=== PATIENT | female | born 1935 | race Caucasian/White ===

== ENCOUNTER 2019-08-17 18:31 | Inpatient (IN) | payer MEDICARE, OTHER ==
[~2019-08-17] VITALS: Ht 152.4 cm; Wt 46.3 kg
[2019-08-17 18:58] LABS: BASOPHILS % (AUTO) 0.1 % (0.0-2.0); EOSINOPHILS % (AUTO) 0.1 % (0.0-6.0); HEMATOCRIT 53 % (33-45); HEMOGLOBIN 16.4 g/dL (11.5-14.8); LYMPHOCYTES # (AUTO) 1.3 /CMM (0.8-4.8); LYMPHOCYTES % (AUTO) 8.9 % (20.0-44.0); MEAN CORPUSCULAR HGB CONC 31 g/dl (31.0-36.0); MEAN CORPUSCULAR VOLUME 89 fL (82-100); MONOCYTES # (AUTO) 1.1 /CMM (0.1-1.30); MONOCYTES % (AUTO) 7.5 % (2.0-12.0); NEUTROPHILS # (AUTO) 12.4 /CMM (1.8-8.9); NEUTROPHILS % (AUTO) 83.4 % (43.0-81.0); PLATELET COUNT (AUTO) 243 /CMM (150-450); RED BLOOD CELL COUNT(AUTO) 5.94 MIL/uL (4.0-5.2); WHITE BLOOD COUNT (AUTO) 14.8 K/uL (4.3-11.0)
[2019-08-17] MEDS ORDERED: DEXAMETHASONE SOD PHOSPHATE 10 MG/ML VIAL IV ONE (19:00)
[2019-08-17] MEDS ORDERED: IV NS 0.9% 1,000 ML BAG IV ONE (19:00)
[2019-08-17] MEDS ORDERED: DEXAMETHASONE SOD PHOSPHATE 10 MG/ML VIAL ONE (19:09)
[2019-08-17 19:19] LABS: ALANINE AMINOTRANSFERASE 68 U/L (12-78); ALBUMIN 2.6 g/dL (3.4-5.0); ALKALINE PHOSPHATASE 111 U/L (46-116); ASPARTATE AMINOTRANSFERASE 56 U/L (15-37); BILIRUBIN,DIRECT 0.2 mg/dL (0.0-0.2); BILIRUBIN,TOTAL 0.4 mg/dL (0.2-1.0); CALCIUM, SERUM 9.7 mg/dL (8.5-10.1); CARBON DIOXIDE 20 mmol/L (21-32); CREATININE 3.7 mg/dL (0.6-1.3); GLUCOSE 168 mg/dL (74-106); POTASSIUM 3.7 mmol/L (3.5-5.1); TOTAL PROTEIN, SERUM 8.4 g/dL (6.4-8.2)
[2019-08-17 19:21] LABS: CHLORIDE 127 mmol/L (98-107); SODIUM SERUM 164 mmol/L (136-145)
--- NOTE | 2019-08-17 19:21 | NUR ---
Per stat lab sodium 164
--- NOTE | 2019-08-17 19:21 | NUR ---
[facility] FROM SNF TO ER BED 5. OBTUNEDED. IN MOD RESP DISTRESS, TACHYPNEIC WITH O2 SAT 9O% ON RA. PT WAS BROUGHT FOR SOB, HYPOTENSION AND WEAKNESS. PT WAS REPORTED HYPOTENSIVE NOTED SBP IN 90S. PT IS PLACED ON 02 VIA NC @ 5LPM SATTING @ 97%. RECTAL TEMP NOTED @ 99.0. URINE IS BEING COLLECTED VIA BLACKWELL CATH BUT PT IS NOTED DRY W/O URINE OUTPUT. IV LINE ALREADY PRESENT UPON ARRIVAL ON RFA 20G. BLOOD DRAWN BY VOLUNTEER FIRE FIGHTER AT BEDSIDE. XRAY DONE WELL EKG. DR. ALVARADO PASSED BY TO SEE PT. WILL CONTINUE TO MONITOR
[2019-08-17 19:22] LABS: UREA NITROGEN, BLOOD 126 mg/dL (7-18)
--- NOTE | 2019-08-17 19:22 | NUR ---
Per stat lab: critical labs. Chloride 127 BUN 126
[2019-08-17] MEDS ORDERED: ONDANSETRON HCL/PF 4 MG/2 ML VIAL IV PRN (19:30)
[2019-08-17 19:43] LABS: APPEARANCE,URINE Clear (CLEAR); BILIRUBIN,URINE SMALL (NEGATIVE); BLOOD, URINE Moderate Ery/uL (NEGATIVE); COLOR,URINE Yellow (YELLOW); KETONES,URINE Negative (NEGATIVE); LEUKOCYTE ESTERASE ,URINE Small (NEGATIVE); NITRITE, URINE Negative (NEGATIVE); PH,URINE 5.5 (5.0-8.0); PROTEIN,URINE 100 mg/dl (NEGATIVE); UGLUCOSE Negative (NEGATIVE); UROBILINOGEN,URINE 0.2 EU/dL (0.2)
--- NOTE | 2019-08-17 19:45 | NUR ---
US AT BEDSIDE
[2019-08-17] MEDS ORDERED: FEE PK DOSING 1 MIN EA MC ONE (19:52)
[2019-08-17] MEDS ORDERED: FERR325T23 PO (19:57)
[2019-08-17] MEDS ORDERED: OLAN5TAB3 PO (19:57)
[2019-08-17] MEDS ORDERED: ESCI5TAB PO (19:57)
[2019-08-17] MEDS ORDERED: ATOR10TA PO (19:57)
[2019-08-17] MEDS ORDERED: MULT-754 PO (19:57)
[2019-08-17] MEDS ORDERED: AMLO2.5T4 PO (19:57)
[2019-08-17] MEDS ORDERED: ASCO500T21 PO (19:57)
--- NOTE | 2019-08-17 19:58 | NUR ---
COVID SWAB DONE AND SENT TO LAB
[2019-08-17] MEDS ORDERED: VANCOMYCIN 500 MG in IV D5W 100 ML IV SCH (20:00)
[2019-08-17] MEDS ORDERED: CEFEPIME 2 GM in IV D5W 100 ML IV SCH (20:00)
[2019-08-17 20:39] LABS: HYALINE CASTS, URINE Few /LPF (None Seen)
[2019-08-17 20:40] LABS: BACTERIA,URINE Many /HPF (None Seen)
[2019-08-17 20:41] LABS: SQUAMOUS EPITHELIAL CELL,UR MOD /HPF (None Seen); YEAST,URINE Moderate /HPF (None Seen)
[2019-08-17 21:00] VITALS: BP 123/82
[2019-08-17] MEDS ORDERED: CEFEPIME 1 GM in IV NS 0.9% 50 ML IV SCH (21:00)
[2019-08-17] MEDS ORDERED: ENOXAPARIN SODIUM 40 MG/0.4 ML DISP.SYRIN SQ SCH (21:00)
--- NOTE | 2019-08-17 21:00 | NUR ---
RN NOTE RECEIVED PT FROM ER VIA [employer]. PT IS NON VERBAL BUT PHYSICALLY RESPONSIVE TO VERBAL AND TACTILE STIMULI. PT IS ON 5L OF O2 VIA NC. SINUS TACHY ON THE MONITOR, WITH SACRAL REDNESS. WITH LEFT FOREARM G 20 IV AND RIGHT FOREARM G 20 IV BOTH PATENT AND FLUSHING WELL. WITH BLACKWELL CATHETER DRAINING CLEAR YELLOW URINE. VITAL SIGNS CHECKED, CALL LIGHT WITHIN REACH, SAFETY MEASURES IN PLACE, WILL MONITOR PT.
--- NOTE | 2019-08-17 21:00 | NUR ---
barron cath inserted as per md ordered. [id number]
--- NOTE | 2019-08-17 21:37 | NUR ---
RN NOTE RECEIVED ALERT FOR LACTIC ACID 3.5. PT ALREADY HAS ORDERS FOR IV FLUIDS. NOTIFIED PAD EXTRACTION TENDER JUAN.
[2019-08-17] MEDS: IV NS 0.9% 1,000 ML IV SCH (21:43)
--- NOTE | 2019-08-17 21:55 | NUR ---
RN NOTE WITH ORDER FROM COLE MARTINEZ TO ADMINISTER NS 250CC BOLUS IV X 1. ORDER NOTED AND CARRIED OUT.
[2019-08-17] MEDS ORDERED: IV NS 0.9% 250 ML IV ONE (22:00)
[2019-08-17] MEDS: PANTOPRAZOLE 40 MG VIAL IV SCH (22:02)
[2019-08-17] MEDS: HEPARIN SODIUM, PORCINE 5000 UNITS/1 ML VIAL SQ SCH (22:03)
[2019-08-18] VITALS: BP 107/86
[2019-08-18 04:00] VITALS: BP 115/85
[2019-08-18] MEDS: IV NS 0.9% 1,000 ML IV SCH (04:14)
[2019-08-18] MEDS: HEPARIN SODIUM, PORCINE 5000 UNITS/1 ML VIAL SQ SCH (04:18)
[2019-08-18 06:31] LABS: BASOPHILS % (AUTO) 0.1 % (0.0-2.0); HEMATOCRIT 48 % (33-45); HEMOGLOBIN 14.4 g/dL (11.5-14.8); LYMPHOCYTES % (AUTO) 8.8 % (20.0-44.0); MEAN CORPUSCULAR HGB CONC 30 g/dl (31.0-36.0); MEAN CORPUSCULAR VOLUME 90 fL (82-100); MONOCYTES # (AUTO) 0.5 /CMM (0.1-1.30); MONOCYTES % (AUTO) 4.3 % (2.0-12.0); NEUTROPHILS # (AUTO) 10.1 /CMM (1.8-8.9); NEUTROPHILS % (AUTO) 86.8 % (43.0-81.0); PLATELET COUNT (AUTO) 133 /CMM (150-450); RED BLOOD CELL COUNT(AUTO) 5.27 MIL/uL (4.0-5.2); WHITE BLOOD COUNT (AUTO) 11.7 K/uL (4.3-11.0)
[2019-08-18 06:44] LABS: ALANINE AMINOTRANSFERASE 59 U/L (12-78); ALBUMIN 2.2 g/dL (3.4-5.0); ALKALINE PHOSPHATASE 88 U/L (46-116); ASPARTATE AMINOTRANSFERASE 67 U/L (15-37); BILIRUBIN,TOTAL 0.4 mg/dL (0.2-1.0); CALCIUM, SERUM 8.2 mg/dL (8.5-10.1); CARBON DIOXIDE 21 mmol/L (21-32); CREATININE 2.4 mg/dL (0.6-1.3); GLUCOSE 149 mg/dL (74-106); POTASSIUM 3.7 mmol/L (3.5-5.1); TOTAL PROTEIN, SERUM 7.4 g/dL (6.4-8.2)
--- NOTE | 2019-08-18 07:12 | NUR ---
RN OPENING NOTES Received patient sleeping at bed. A/O x1, on NC @ 5L setting with humidifier ,tolerating well, no s/sx of resp distress, saturating well, on 100%. Patient is on tele-monitor, readings sinus tach 120s, Arambula cath noted, draining clear yellow urine by gravity. Patient is NPO status, swallow evaluation is ordered. IV lines on RFA #20 and LFA #20 noted running NS @ 125 cc/hr, both intact and patent. Left led redness and coolness and sacral redness noted. Safety measures implemented, call light within reach, bed in lowest position, will cont to monitor
[2019-08-18 07:36] LABS: CHLORIDE 128 mmol/L (98-107); SODIUM SERUM 164 mmol/L (136-145); UREA NITROGEN, BLOOD 95 mg/dL (7-18)
--- NOTE | 2019-08-18 07:43 | NUR ---
LAB CALLED, REPORT CRITICAL VALUES, CHARGE NURSE AND MD ALVARADO NOTIFIED
[2019-08-18 08:00] VITALS: BP 115/86
[2019-08-18] MEDS: PANTOPRAZOLE 40 MG VIAL IV SCH (08:49)
--- NOTE | 2019-08-18 09:12 | NUR ---
WOUND CARE CONSULT: REVIEWED CHART, NURSING DOCUMENTATION AND PHOTOS WHICH SHOW SACRAL INTACT DEEP TISSUE INJURY, PRESENT ON ADMISSION. RECOMMENDATIONS MADE FOR SKIN PROTECTION. DISCUSSED WITH NURSING STAFF. PT IS ON [place] ISOFLEX LOW AIRLOSS BED. WILL SEE PRNga KAUR IN AGREEMENT WITH PLAN OF CARE.
[2019-08-18] MEDS ORDERED: Z GUARD REMEDY 2 OZ OINT TP PRN (09:30)
[2019-08-18] MEDS: Z GUARD REMEDY 2 OZ OINT TP SCH (09:36)
[2019-08-18] MEDS ORDERED: POLYVINYL ALCOHOL 15 ML BOTTLE EACHEYE SCH (10:00)
[2019-08-18] MEDS: IV D5/0.45 NACL 1,000 ML IV PRN ×2 (10:00→18:55)
[2019-08-18 11:02] LABS: C-REACTIVE PROTEIN 4.2 mg/dL (0.0-0.9)
[2019-08-18] MEDS: HEPARIN INFUSION/D5W 500 ML IV PRN (11:24)
[2019-08-18] MEDS ORDERED: HEPARIN SODIUM, PORCINE 5000 UNITS/1 ML VIAL IV ONE (11:30)
--- NOTE | 2019-08-18 11:45 | NUR ---
PATIENT WITH POOR PERIPHERAL IV ACCESS, PER DR. CHRISTIANO CORTES MIDLINE.
--- NOTE | 2019-08-18 11:47 | NUR ---
Started pt on Heparin drip, gave 3000 unit bolus, followed by 675 units/hr drip, repeat PTT order 6h later, Will cont to monitor
[2019-08-18 12:00] VITALS: BP 110/88
[2019-08-18 12:08] LABS: D-DIMER 35.2 mg/L(FEU (0.17-0.50)
[2019-08-18 16:00] VITALS: BP 138/89
--- NOTE | 2019-08-18 18:24 | NUR ---
Paused Heparin according to protocol, patients PTT is 87.9, paused for 30 + min, and decreased rate to 575 units/hr. Will endorse to PM nurse
--- NOTE | 2019-08-18 19:32 | NUR ---
RN CLOSING NOTES Patient resting at bed calmly, tolerating fluids and Heparin drip well, no s/sx of distress noted. Comfort needs are met, safety measures implemented, bed in lowest position, call light within reach,will endorse to PM shift for COLIN
[2019-08-18] MEDS: CEFEPIME 1 GM in IV D5W 50 ML IV SCH (19:37)
--- NOTE | 2019-08-18 19:45 | NUR ---
PERSONNEL SECURITY ASSISTANT NOTE RESTARTED THE HEPARIN DRIP PER PROTOCOL AT 575 UNITS/HR PER PTT 87.9 HEPARIN WAS HELD BY DAY SHIFT NURSE FOR 1/2 HR. NO S/S OF BLEEDING NOTED. WILL RECHECK PTT AT 0100.
[2019-08-18 20:00] VITALS: BP 156/97
--- NOTE | 2019-08-18 20:00 | NUR ---
MATERIAL CONTROL SUPERVISOR NOTE PT IN BED OBTUNDED. ON O2 5L VIA N/C WITH HUMIDIFIER O2 SAT 94%. NO DISTRESS OR DISCOMFORT NOTED. NO S/S OF PAIN NOTED. ON HEPARIN DRIP INFUSING AT 575 UNITS/HR AT LFA #20. NO S/S OF BLEEDING NOTED OR INFILTRATION NOTED. IV ATB'S AND D5 1/2 NS INFUSING AT 125 ML/HR BRANDON MIDLINE. NO S/S OF INFILTRATION NOTED. ON TELE ST 101. PT REMAIN BED REST, REPOSITION HER FOR SKIN MANAGEMENT. SIDE RAILS UP X 3 AND CALL LIGHT WITHIN REACH. VSS. CONTINUE TO MONITOR HER.
[2019-08-18] MEDS: VANCOMYCIN 500 MG in IV D5W 100 ML IV SCH (20:32)
[2019-08-18] MEDS: FLUCONAZOLE IN NS 100 MG in PREMIX 1 EA IV SCH ×2 (21:26)
[2019-08-19] VITALS: BP 124/83
--- NOTE | 2019-08-19 01:00 | NUR ---
TRUCK GREASER NOTE CHARCOAL UNLOADER CAME AND DRAW BLOOD FOR PTT SCHEDULED. WILL FOLLOW UP WITH THE RESULT.
--- NOTE | 2019-08-19 01:41 | NUR ---
PATROL COMMUNITY SERVICE OFFICER NOTE PTT LEVEL 100.3 PER PROTOCOL HELD THE HEPARIN DRIP FOR 1 HOUR. WILL RESTART PER PROTOCOL.
--- NOTE | 2019-08-19 02:40 | NUR ---
BIOGEOGRAPHER NOTE STARTED HEPARIN DRIP AT 425 UNITS/HR PER PROTOCOL.
[2019-08-19 04:00] VITALS: BP 140/99
[2019-08-19] MEDS: IV D5/0.45 NACL 1,000 ML IV PRN (05:40)
--- NOTE | 2019-08-19 06:36 | NUR ---
VICE PRESIDENT INDUSTRIAL RELATIONS NOTE NO CHANGE IN CONDITION DURING THE SHIFT. HEPARIN DRIP AT 425 UNITS/HR INFUSING, NO S/S OF BLEEDING NOTED. IVF D5 1/2 NS INFUSING AT 125 ML/HR, NO S/S OF INFILTRATION NOTED. F/C INTACT AND PATENT DRAINING YELLOWISH COLOR URINE. SIDE RAILS UP X 2 AND CALL LIGHT WITHIN REACH. WILL ENDORSE TO DAY SHIFT NURSE FOR CONTINUE TO CARE. ON TELE ST HR 119.
[2019-08-19 06:43] LABS: BASOPHILS % (AUTO) 0.1 % (0.0-2.0); EOSINOPHILS % (AUTO) 0.1 % (0.0-6.0); HEMATOCRIT 46 % (33-45); HEMOGLOBIN 13.9 g/dL (11.5-14.8); LYMPHOCYTES # (AUTO) 1.2 /CMM (0.8-4.8); LYMPHOCYTES % (AUTO) 8.8 % (20.0-44.0); MEAN CORPUSCULAR HGB CONC 30 g/dl (31.0-36.0); MEAN CORPUSCULAR VOLUME 90 fL (82-100); MONOCYTES % (AUTO) 7.7 % (2.0-12.0); NEUTROPHILS % (AUTO) 83.3 % (43.0-81.0); PLATELET COUNT (AUTO) 148 /CMM (150-450); RED BLOOD CELL COUNT(AUTO) 5.08 MIL/uL (4.0-5.2); WHITE BLOOD COUNT (AUTO) 13.3 K/uL (4.3-11.0)
[2019-08-19 06:46] LABS: CALCIUM, SERUM 8.4 mg/dL (8.5-10.1); CARBON DIOXIDE 22 mmol/L (21-32); CREATININE 1.4 mg/dL (0.6-1.3); GLUCOSE 182 mg/dL (74-106); MAGNESIUM 2.7 mg/dL (1.8-2.4); PHOSPHORUS 1.6 mg/dL (2.5-4.9); POTASSIUM 3.2 mmol/L (3.5-5.1); UREA NITROGEN, BLOOD 51 mg/dL (7-18)
--- NOTE | 2019-08-19 07:12 | NUR ---
RN OPENING NOTES Received patient at bed, obtunded. receiving O2 via NC @5L rate with O2 saturations of 96%, no s/sx of resp distress noted, Midline IV noted on BRANDON running DS 1/2 solution @125cc/hr, intact and patent and Left FA running Heparin @ 425 units/hr, intact and patent, no s/sx of bleeding noted, tolerating well. Patient is on tele monitor wit sinus tach reading in 120s. Safety measures implemented, call light within reach, bed in lowest position, will cont to monitor
[2019-08-19 07:32] LABS: CHLORIDE 129 mmol/L (98-107); SODIUM SERUM 161 mmol/L (136-145)
--- NOTE | 2019-08-19 07:53 | NUR ---
elevated trop and abnormal lytes relayed to md .will change iv and replace k as ordered,primary rn made aware.
[2019-08-19 08:00] VITALS: BP 132/90
[2019-08-19] MEDS: IV D5W 1,000 ML IV SCH ×2 (08:02→18:17)
[2019-08-19] MEDS: POTASSIUM CL. PREMIX PERIPHER. 50 ML IV SCH ×4 (08:02→11:04)
[2019-08-19] MEDS: Z GUARD REMEDY 2 OZ OINT TP SCH (08:05)
[2019-08-19] MEDS: PANTOPRAZOLE 40 MG VIAL IV SCH (08:05)
[2019-08-19] MEDS: POTASSIUM PHOSPHATE MM 7.5 MMOL in IV NS 0.9% 100 ML IV SCH ×2 (09:00→12:47)
--- NOTE | 2019-08-19 09:23 | NUR ---
hold Potassium Phosphate till finish 4 bags of Potassium Chloride started at 8am, Dr Holloway notified, charge nurse notified
--- NOTE | 2019-08-19 09:45 | NUR ---
Called lab, asked about PTT results , laborer general came to collect
--- NOTE | 2019-08-19 10:15 | NUR ---
Patient failed follow up swallow evaluation, will notify Dr ALVARADO
[2019-08-19 12:00] VITALS: BP 126/80
--- NOTE | 2019-08-19 12:26 | NUR ---
Received pas PTT results (46.2) . according per protocol will cont heparin drip with the same rate (425 units/hr) , charge nurse and MD notified
--- NOTE | 2019-08-19 13:00 | NUR ---
Microbiology Lab called, reported positive MRSA in pat's nostrils, notified
[2019-08-19 16:00] VITALS: BP_SYST 131; BP_DIAS 91; BP_DIAS 95
--- NOTE | 2019-08-19 18:42 | NUR ---
RN OPENING NOTES Received patient at bed, obtunded. receiving O2 via NC @5L rate with O2 saturations of 96%, no s/sx of resp distress noted, Midline IV noted on BRANDON running DS 1/2 solution @125cc/hr, intact and patent and Left FA running Heparin @ 425 units/hr, intact and patent, no s/sx of bleeding noted, tolerating well. Patient is on tele monitor wit sinus tach reading in 120s. Safety measures implemented, call light within reach, bed in lowest position, will cont to monitor Addendum: 08/19/19 at 1903 by Lila Bland RN Disregard this note
--- NOTE | 2019-08-19 19:03 | NUR ---
RN CLOSING NOTE Patient is resting comfortably, tolerating well same settings of O2, Heparin is still running @ 425 units/hr, IV line is patent and intact, no s/sx of bleeding noted, BRANDON midline running D5 solution @100ml/hr, intact and patent, Comfort need are et, safety measures implemented, will endorse to PM shift RN for COLIN
[2019-08-19] MEDS: CEFEPIME 1 GM in IV D5W 50 ML IV SCH (19:57)
[2019-08-19 20:00] VITALS: BP 123/77
--- NOTE | 2019-08-19 20:00 | NUR ---
VESSEL CREW MEMBER NOTE PT IN BED OBTUNDED. ON 5L VIA NC WITH HUMIDIFIER 02 SAT 95%. NO DISTRESS OR DISCOMFORT NOTED. NO S/S OF PAIN NOTED. ON TELE MONITOR ST HR 100. LFA #20 GETTING HEPARIN DRIP AT 425 UNITS/HR EQUAL TO 8.5 ML/HR AND BRANDON MIDLINE #20 G GETTING D5W @ 100 ML/HR, NO SS OF INFILTRATION NOTED. ON TELE ST HR 100. KEPT HER DRY AND CLEAN. REPOSITION HER FOR SKIN MANAGEMENT. F/C INTACT AND PATENT DRAINING YELLOWISH COLOR URINE. ALL NEEDS ATTENDED. REMAIN IN ISOLATION FOR COVID 19 R/O, ISOLATION PRECAUTIONS TAKEN. SIDE RAILS UP X 2 AND CALL LIGHT WITHIN REACH. VSS. CONTINUE TO MONITOR HER.
[2019-08-19] MEDS: VANCOMYCIN 500 MG in IV D5W 100 ML IV SCH (20:43)
[2019-08-19] MEDS: FLUCONAZOLE IN NS 100 MG in PREMIX 1 EA IV SCH ×2 (21:42)
[2019-08-19] MEDS: MUPIROCIN OINT 2% 22 GM TUBE SCH (21:50)
[2019-08-20] VITALS: BP 116/65
[2019-08-20 04:00] VITALS: BP 138/68
[2019-08-20] MEDS: IV D5W 1,000 ML IV SCH ×2 (05:04→16:47)
[2019-08-20 05:26] LABS: BASOPHILS % (AUTO) 0.2 % (0.0-2.0); EOSINOPHILS % (AUTO) 0.5 % (0.0-6.0); HEMATOCRIT 40 % (33-45); HEMOGLOBIN 12.6 g/dL (11.5-14.8); LYMPHOCYTES # (AUTO) 1.5 /CMM (0.8-4.8); LYMPHOCYTES % (AUTO) 12.3 % (20.0-44.0); MEAN CORPUSCULAR HGB CONC 31 g/dl (31.0-36.0); MEAN CORPUSCULAR VOLUME 86 fL (82-100); MONOCYTES # (AUTO) 1.1 /CMM (0.1-1.30); MONOCYTES % (AUTO) 8.5 % (2.0-12.0); NEUTROPHILS # (AUTO) 9.7 /CMM (1.8-8.9); NEUTROPHILS % (AUTO) 78.5 % (43.0-81.0); PLATELET COUNT (AUTO) 146 /CMM (150-450); RED BLOOD CELL COUNT(AUTO) 4.67 MIL/uL (4.0-5.2); WHITE BLOOD COUNT (AUTO) 12.4 K/uL (4.3-11.0)
[2019-08-20 05:35] LABS: CALCIUM, SERUM 8.3 mg/dL (8.5-10.1); CREATININE 1.2 mg/dL (0.6-1.3); POTASSIUM 3.7 mmol/L (3.5-5.1)
--- NOTE | 2019-08-20 05:50 | NUR ---
EX ASSISTANT/PROGRAM DIRECTOR NOTE CREDIT RISK MANAGER CALLED INFORMED ME ABOUT NA LEVEL 158, TROPNIN 1.1 WHICH ARE TRENDING DOWN. ALSO PTT IS 47.5 NO CHANGE PER PROTOCOL, CONTINUE WITH HEPARIN DRIP AT 425 UNITS/HR. CONTINUE TO MONITOR
--- NOTE | 2019-08-20 06:27 | NUR ---
FINGERPRINT CLASSIFIER NOTE PT REMAIN IN BED OBTUNDED. NO DISTRESS OR DISCOMFORT NOTED. NO S/S OF PAIN NOTED. ON HEPARIN DRIP AT 425 UNITS/HR INFUSING, NO S/S OF BLEEDING NOTED. IVF D5W INFUSING AT 100 ML/HR, NO S/S OF INFILTRATION NOTED. F/C INTACT AND PATENT DRAINING YELLOWISH COLOR URINE. SIDE RAILS UP X 2 AND CALL LIGHT WITHIN REACH. WILL ENDORSE TO DAY SHIFT NURSE FOR CONTINUE TO CARE. ON TELE SR HR 80.
--- NOTE | 2019-08-20 07:15 | NUR ---
RN Opening note PT REMAIN IN BED OBTUNDED. NO DISTRESS OR DISCOMFORT NOTED. SR ON THE MONITOR. ROUNDING ON THE PATIENT. IV INTACT, CONT ON HEPARIN DRIP AT 425 UNITS/HR INFUSING, NO S/S OF BLEEDING NOTED. IVF D5W INFUSING AT 70 ML/HR, NO S/S OF INFILTRATION NOTED. F/C INTACT AND PATENT DRAINING YELLOWISH COLOR URINE. SIDE RAILS UP X 2 AND CALL LIGHT WITHIN REACH. WILL CONT TO MONITOR
[2019-08-20 08:00] VITALS: BP 135/86
[2019-08-20] MEDS ORDERED: JEVITY 1.2 CAL 1,000 ML BOTTLE GT PRN (08:00)
[2019-08-20] MEDS: PANTOPRAZOLE 40 MG VIAL IV SCH (10:17)
[2019-08-20] MEDS: Z GUARD REMEDY 2 OZ OINT TP SCH (10:18)
[2019-08-20] MEDS: MUPIROCIN OINT 2% 22 GM TUBE SCH ×2 (10:18→21:21)
[2019-08-20 12:00] VITALS: BP 141/78
[2019-08-20] MEDS: HEPARIN INFUSION/D5W 500 ML IV PRN (13:13)
[2019-08-20 16:00] VITALS: BP 128/81
[2019-08-20] MEDS: VANCOMYCIN 500 MG in IV D5W 100 ML IV SCH (16:47)
--- NOTE | 2019-08-20 18:53 | NUR ---
RN CLOSING NOTE PT IN BED OBTUNDED. BREATHING EVEN,NO SOB NOTED. NO DISTRESS OR DISCOMFORT AT THIS TIME. HEAD OF THE BED ELEVATED. JEVITY 1.2 RUNNING AT 30 ML/HR VIA NG-TUBE, FEEDING TOLERATED WELL. ON TELE MONITOR SR HR 90. LFA #20 GETTING HEPARIN DRIP AT 425 UNITS/HR EQUAL TO 8.5 ML/HR AND BRANDON MIDLINE #20 G GETTING D5W @ 70 ML/HR, NO SS OF INFILTRATION NOTED. KEPT HER DRY AND CLEAN. REPOSITION HER FOR SKIN MANAGEMENT. F/C INTACT AND PATENT DRAINING YELLOWISH COLOR URINE. ALL NEEDS ATTENDED. REMAIN IN ISOLATION FOR COVID 19 R/O, ISOLATION PRECAUTIONS TAKEN. SIDE RAILS UP X 2 AND CALL LIGHT WITHIN REACH. WILL ENDORSE TO RADIATION CONTROL WORKER RN
--- NOTE | 2019-08-20 19:55 | NUR ---
RN OPENING NOTE PT RECEIVED IN BED. PT IS OBTUNDED . NO S/S OF DISTRESS NOTED. PT IS ON 5 L VIA NC SATING 97%. PT HAS NG TUBE RUNNING JEVITY 1.2 AT 30 ML/H. NG TUBE IS PATENT, NO RESIDUAL NOTED AND FLUSHES WELL. PT HAS LFA 20 G HEPARIN 425 U/H AND MIDLINE BRANDON 20 G D5W RUNNING AT 70 ML/H.SAFETY MEASURES IN PLACE BED AT LOWEST POSITION, LOCKED , SIDE RAILS UP X2 CALL LIGHT IN REACH. WILL CONTINUE TO MONITOR.
[2019-08-20 20:00] VITALS: BP 127/75
[2019-08-20] MEDS: CEFEPIME 1 GM in IV D5W 50 ML IV SCH (20:23)
[2019-08-20] MEDS: FLUCONAZOLE IN NS 100 MG in PREMIX 1 EA IV SCH ×2 (21:20)
[2019-08-21] VITALS: BP 135/81
[2019-08-21] MEDS: IV D5W 1,000 ML IV SCH (02:42)
[2019-08-21] MEDS: VANCOMYCIN 500 MG in IV D5W 100 ML IV SCH ×2 (03:52→14:01)
[2019-08-21 04:00] VITALS: BP 122/69
[2019-08-21 05:27] LABS: BASOPHILS % (AUTO) 0.1 % (0.0-2.0); EOSINOPHILS % (AUTO) 0.6 % (0.0-6.0); HEMATOCRIT 41 % (33-45); HEMOGLOBIN 12.6 g/dL (11.5-14.8); LYMPHOCYTES # (AUTO) 1.6 /CMM (0.8-4.8); LYMPHOCYTES % (AUTO) 12.3 % (20.0-44.0); MEAN CORPUSCULAR HGB CONC 31 g/dl (31.0-36.0); MEAN CORPUSCULAR VOLUME 86 fL (82-100); MONOCYTES # (AUTO) 0.6 /CMM (0.1-1.30); MONOCYTES % (AUTO) 4.9 % (2.0-12.0); NEUTROPHILS # (AUTO) 10.5 /CMM (1.8-8.9); NEUTROPHILS % (AUTO) 82.1 % (43.0-81.0); PLATELET COUNT (AUTO) 142 /CMM (150-450); RED BLOOD CELL COUNT(AUTO) 4.77 MIL/uL (4.0-5.2); WHITE BLOOD COUNT (AUTO) 12.8 K/uL (4.3-11.0)
[2019-08-21 05:44] LABS: CALCIUM, SERUM 7.9 mg/dL (8.5-10.1); CARBON DIOXIDE 24 mmol/L (21-32); CHLORIDE 114 mmol/L (98-107); CREATININE 1.1 mg/dL (0.6-1.3); GLUCOSE 146 mg/dL (74-106); MAGNESIUM 2.3 mg/dL (1.8-2.4); PHOSPHORUS 2.4 mg/dL (2.5-4.9); POTASSIUM 3.1 mmol/L (3.5-5.1); SODIUM SERUM 147 mmol/L (136-145); UREA NITROGEN, BLOOD 19 mg/dL (7-18)
--- NOTE | 2019-08-21 06:45 | NUR ---
RN CLOSING NOTE PT REMAINS STABLE DURING MY SHIFT. VSS. WILL ENDORSE TO INCOMING SHIFT FOR COLIN.
--- NOTE | 2019-08-21 07:30 | NUR ---
RECEIVED PATIENT IN BED. NO ACUTE DISTRESS NOTED. PATIENT OBTUNDED. PATIENT ON 5L OXYGEN VIA NASAL CANNULA, SATURATING WELL, BREATHING EVEN AND UNLABORED. PATIENT BLACKWELL CATHETER IN PLACE, INTACT, PATENT, DRAINING TO GRAVITY. PATIENT NG TUBE IN PLACE, FLUSHED WELL, CHECKED FOR PLACEMENT. PATIENT RIGHT UPPER ARM MIDLINE INTACT, PATENT, FLUSHED WELL. PATIENT LEFT FOREARM INTACT, PATENT, FLUSHED WELL. HEPARIN RUNNING AT 425UNIT/HR, APTT AT 48.4, SO PER PROTOCOL NO CHANGE IN RATE. PATIENT SAFETY MAINTAINED. CALL LIGHT WITHIN REACH. WILL CONTINUE TO MONITOR. Addendum: 08/21/19 at 0805 by SIERRA LOREDO RN PATIENT ON TELE MONITOR, SINUS RHYTHM NOTED WITH HEART RATE IN 90s.
[2019-08-21 08:00] VITALS: BP 115/63
[2019-08-21] MEDS ORDERED: K PHOS NEUTRAL 250 MG TABLET PO ONE (08:00)
[2019-08-21] MEDS: PANTOPRAZOLE 40 MG VIAL IV SCH (08:46)
[2019-08-21] MEDS: MUPIROCIN OINT 2% 22 GM TUBE SCH ×2 (08:46→21:21)
[2019-08-21] MEDS: Z GUARD REMEDY 2 OZ OINT TP SCH (08:46)
[2019-08-21 12:00] VITALS: BP 118/76
[2019-08-21] MEDS: DEXAMETHASONE SOD PHOSPHATE 10 MG/ML VIAL IV SCH (12:29)
--- NOTE | 2019-08-21 14:01 | NUR ---
Dr jimenez's office notified re; potassium of 3.1 waiting for returing call back
[2019-08-21 16:00] VITALS: BP 120/80
[2019-08-21] MEDS: POTASSIUM CL. PREMIX PERIPHER. 50 ML IV SCH ×4 (16:46→19:49)
--- NOTE | 2019-08-21 18:26 | NUR ---
PATIENT IN BED. NO ACUTE DISTRESS NOTED. PATIENT OBTUNDED. PATIENT ON 5L OXYGEN VIA NASAL CANNULA, SATURATING WELL, BREATHING EVEN AND UNLABORED. PATIENT ON READING SPECIALIST, SINUS RHYTHM NOTED. PATIENT BLACKWELL CATHETER IN PLACE, INTACT, PATENT, DRAINING TO GRAVITY. PATIENT NG TUBE IN PLACE, FLUSHED WELL, CHECKED FOR PLACEMENT. PATIENT RIGHT UPPER ARM MIDLINE INTACT, PATENT, FLUSHED WELL. PATIENT LEFT FOREARM INTACT, PATENT, FLUSHED WELL. HEPARIN RUNNING AT 425UNIT/HR, APTT AT 48.4, SO PER PROTOCOL NO CHANGE IN RATE. PATIENT SAFETY MAINTAINED. CALL LIGHT WITHIN REACH. WILL ENDORSE PLAN OF CARE TO ONCOMING NURSE FOR CONTINUITY OF CARE Addendum: 08/21/19 at 1828 by SIERRA LOREDO RN PATIENT ACTUALLY RESPONDS TO TOUCH AND VOICE. CAN LOOK AT YOU, MAKES NOISES TO "COMMUNICATE"
--- NOTE | 2019-08-21 19:30 | NUR ---
RN OPENING NOTE PATIENT IN BED. NO ACUTE DISTRESS NOTED PATIENT ON 5L OF O2 VIA NASAL CANNULA, PT SATURATING WELL, BREATHING EVEN AND UNLABORED. PATIENT ON TON CONTAINER FILLER, SINUS RHYTHM NOTED. BLACKWELL CATHETER IN PLACE, INTACT, DRAINING YELLOW URINE TO GRAVITY. PATIENT NG TUBE IN PLACE, FLUSHED WELL, CHECKED FOR PLACEMENT, JEVITY RUNNING AT 30 ML/HR. PATIENT RIGHT UPPER ARM MIDLINE INTACT, PATENT, FLUSHED WELL. PATIENT LEFT FOREARM INTACT, PATENT, FLUSHED WELL. RECEIVED PT WITH HEPARIN RUNNING AT 425 UNIT/HR, NO CHANGE IN RATE. PATIENT SAFETY MAINTAINED. BED IN LOWEST POSITION CALL LIGHT WITHIN REACH. WILL CONTINUE TO MONITOR PT
[2019-08-21 20:00] VITALS: BP 107/60
[2019-08-21] MEDS: CEFEPIME 1 GM in IV D5W 50 ML IV SCH (20:49)
[2019-08-21] MEDS: FLUCONAZOLE IN NS 100 MG in PREMIX 1 EA IV SCH ×2 (21:21)
[2019-08-22] VITALS: BP 102/66
[2019-08-22] MEDS: VANCOMYCIN 500 MG in IV D5W 100 ML IV SCH ×2 (03:02→16:02)
[2019-08-22 04:00] VITALS: BP 111/68
[2019-08-22] MEDS: IV D5W 1,000 ML IV SCH (06:56)
[2019-08-22 07:02] LABS: CALCIUM, SERUM 7.7 mg/dL (8.5-10.1); CREATININE 0.9 mg/dL (0.6-1.3); POTASSIUM 3.2 mmol/L (3.5-5.1)
--- NOTE | 2019-08-22 07:06 | NUR ---
RN CLOSING NOTE PATIENT IN BED. NO ACUTE DISTRESS NOTED PATIENT ON 5L OF O2 VIA NASAL CANNULA, PT SATURATING WELL DURING SHIFT, BREATHING EVEN AND UNLABORED. PATIENT ON CLINICAL CYTOGENETICIST SCIENTIST, SINUS RHYTHM THROUGHOUT SHIFT. BLACKWELL CATHETER IN PLACE, INTACT, DRAINING YELLOW URINE TO GRAVITY. PATIENT NG TUBE PATENT IN PLACE, FLUSHED WELL, CHECKED FOR PLACEMENT, JEVITY RUNNING AT 30 ML/HR. PATIENT RIGHT UPPER ARM MIDLINE INTACT, PATENT, FLUSHED WELL. PATIENT LEFT FOREARM INTACT, PATENT, FLUSHED WELL. HEPARIN RUNNING AT 425 UNIT/HR, D5W INFUSING AT 40 ML/HR. ENDORSED TO AM RN FOR COLIN
--- NOTE | 2019-08-22 07:30 | NUR ---
RECEIVED PATIENT IN BED. NO ACUTE DISTRESS NOTED. ALERT & ORIENTED X0. PATIENT ON 5L OXYGEN VIA NASAL CANNULA, BREATHING EVEN AND UNLABORED, SATURATING WELL. PATIENT ON COMPENSATION AND BENEFITS MANAGER, SINUS RHYTHM NOTED WITH HEART RATE IN 70s. PATIENT NG TUBE INTACT, PATENT, FLUSHED WELL, CHECKED FOR PLACEMENT. PATIENT LEFT FOREARM IV ACCESS INTACT, PATENT, FLUSHED WELL. PATIENT RIGHT UPPER ARM MIDLINE INTACT, PATENT, FLUSHED WELL. PATIENT BLACKWELL CATHETER IN PLACE, INTACT, PATENT, DRAINING TO GRAVITY. PATIENT SAFETY MAINTAINED. CALL LIGHT WITHIN REACH. WILL CONTINUE TO MONITOR.
[2019-08-22 08:00] VITALS: BP 131/75
[2019-08-22] MEDS: DEXAMETHASONE SOD PHOSPHATE 10 MG/ML VIAL IV SCH (08:39)
[2019-08-22] MEDS: PANTOPRAZOLE 40 MG VIAL IV SCH (08:40)
[2019-08-22] MEDS: MUPIROCIN OINT 2% 22 GM TUBE SCH ×4 (08:40→21:58)
[2019-08-22] MEDS: Z GUARD REMEDY 2 OZ OINT TP SCH (08:41)
[2019-08-22] MEDS: POTASSIUM CL. PREMIX PERIPHER. 50 ML IV SCH ×4 (11:24→14:19)
[2019-08-22] MEDS ORDERED: HEPARIN SODIUM, PORCINE 5000 UNITS/1 ML VIAL IV ONE (11:30)
[2019-08-22] MEDS ORDERED: HEPARIN SODIUM,PORCINE/PF 50 UNIT/5 ML DISP.SYRIN IV ONE (11:30)
[2019-08-22 12:00] VITALS: BP 117/66
[2019-08-22 16:00] VITALS: BP 118/66
--- NOTE | 2019-08-22 18:31 | NUR ---
PATIENT IN BED. NO ACUTE DISTRESS NOTED. ALERT & ORIENTED X0. PATIENT ON 5L OXYGEN VIA NASAL CANNULA, BREATHING EVEN AND UNLABORED, SATURATING WELL. PATIENT ON NEUROPHYSIOLOGIST, SINUS RHYTHM NOTED. PATIENT NG TUBE INTACT, PATENT, FLUSHED WELL, CHECKED FOR PLACEMENT. PATIENT LEFT FOREARM IV ACCESS INTACT, PATENT, FLUSHED WELL. PATIENT RIGHT UPPER ARM MIDLINE INTACT, PATENT, FLUSHED WELL. PATIENT BLACKWELL CATHETER IN PLACE, INTACT, PATENT, DRAINING TO GRAVITY. PATIENT SAFETY MAINTAINED. CALL LIGHT WITHIN REACH. WILL ENDORSE PLAN OF CARE TO ONCOMING NURSE FOR CONTINUITY OF CARE
--- NOTE | 2019-08-22 19:45 | NUR ---
RN OPENING NOTE RECEIVED PATIENT IN BED RESTING CONFUSED,OPEN EYES,BREATHING IS EVEN AND UNLABORED NO SOB NOT ACUTE DISTRESS AT THIS TIME,ON 6L OXYGEN O2:96%,ON NGT FEEDING, JEVITY 1.2 30CC/HR. PLACEMENT CHECKED, IN PLACE,NO RESIDUAL NOTED.ON HEPARIN DRIP AND D5W 40 CC/HR. IV SITE IS ON RIGHT UPPER ARM INTACT PATENT,AND ON LEFT FOREARM INTACT PATENT,ON BLACKWELL CATHETER, URINE DRAINING YELLOW/CLEAR.HEAD OF BE ELEVATED,KEEP COMFORTABLE,IMPLEMENT SAFETY MEASURE ,CONTINUE TO MONITOR
[2019-08-22 20:00] VITALS: BP 112/73
[2019-08-22] MEDS: CEFEPIME 1 GM in IV D5W 50 ML IV SCH (20:16)
[2019-08-22] MEDS: FLUCONAZOLE IN NS 100 MG in PREMIX 1 EA IV SCH ×2 (20:51)
[2019-08-23] VITALS: BP 124/73
[2019-08-23] MEDS: HEPARIN INFUSION/D5W 500 ML IV PRN (02:12)
[2019-08-23] MEDS: VANCOMYCIN 500 MG in IV D5W 100 ML IV SCH ×2 (02:56→14:33)
[2019-08-23 04:00] VITALS: BP 119/73
--- NOTE | 2019-08-23 06:56 | NUR ---
RN CLOSING NOTE PATIENT REMAINS CONFUSED NON VERBAL BREATHING IS EVEN AND NON LABORED,ON NGT FEEDING JEVITY 1.2 30CC/HR,ALL DUE MEDS GIVEN MD ORDERED,HEAD OF BED ELEVATED FOR PREVENT ASPIRATION,ON HEPARIN DRIP,D5W 40CC/HR.IV SITE ON RIGHT UPPER ARM MID LINE AND LEFT FOREARM INTACT PATENT,KEPT CLEAN AND DRY ALL THE TIME,BLACKWELL CATHETER IN PLACE DRAINING YELLOW AND CLEAR URINE.ALL NEEDS ATTENDED.ENDORSE NEXT COMING SHIFT FOR CONTINUATION OF CARE.
--- NOTE | 2019-08-23 07:25 | NUR ---
RN OPENING NOTE Received patient asleep in bed appears calm and relaxed. On NC 4L tolerating well.. Patient is alert to self. Mumbles words. Tele reading SR 70-80s. Has NGT running Jevity 1.2 @ 30cc/hr. On IVF D5W @ 40ml/hr running on LFA. Heparin 575u/hr running on BRANDON Midline. Safety measures reinforced. Call light within reach. Bed locked and on lowest position. Will cont to monitor.
[2019-08-23 08:00] VITALS: BP 118/76
[2019-08-23 08:06] LABS: BASOPHILS % (AUTO) 0.1 % (0.0-2.0); HEMATOCRIT 33 % (33-45); HEMOGLOBIN 10.5 g/dL (11.5-14.8); LYMPHOCYTES # (AUTO) 0.8 /CMM (0.8-4.8); LYMPHOCYTES % (AUTO) 4.5 % (20.0-44.0); MEAN CORPUSCULAR HGB CONC 32 g/dl (31.0-36.0); MEAN CORPUSCULAR VOLUME 85 fL (82-100); MONOCYTES # (AUTO) 0.9 /CMM (0.1-1.30); MONOCYTES % (AUTO) 5.1 % (2.0-12.0); NEUTROPHILS # (AUTO) 16.4 /CMM (1.8-8.9); NEUTROPHILS % (AUTO) 90.3 % (43.0-81.0); PLATELET COUNT (AUTO) 185 /CMM (150-450); RED BLOOD CELL COUNT(AUTO) 3.89 MIL/uL (4.0-5.2); WHITE BLOOD COUNT (AUTO) 18.2 K/uL (4.3-11.0)
[2019-08-23 08:11] LABS: CALCIUM, SERUM 7.7 mg/dL (8.5-10.1); CREATININE 0.7 mg/dL (0.6-1.3); POTASSIUM 3.8 mmol/L (3.5-5.1)
[2019-08-23] MEDS: DEXAMETHASONE SOD PHOSPHATE 10 MG/ML VIAL IV SCH (08:17)
[2019-08-23] MEDS: PANTOPRAZOLE 40 MG VIAL IV SCH (08:17)
[2019-08-23] MEDS: MUPIROCIN OINT 2% 22 GM TUBE SCH ×4 (08:18→21:10)
[2019-08-23] MEDS: Z GUARD REMEDY 2 OZ OINT TP SCH (08:18)
[2019-08-23 08:33] LABS: MAGNESIUM 2.7 mg/dL (1.8-2.4)
--- NOTE | 2019-08-23 10:15 | NUR ---
PTT came back. Increased Heparin to 675u/hr. Ordered PTT level on 1814.
[2019-08-23 12:00] VITALS: BP 112/80
[2019-08-23 16:00] VITALS: BP 120/78
--- NOTE | 2019-08-23 18:59 | NUR ---
RN CLOSING NOTE Patient in bed asleep calm and relaxed no signs of distress. On NC 5L tolerating well. All due meds given. Vital signs maintained within normal limits. No signs of pain or discomfort. Safety measures reinforced. Call light within reach. Bed locked and on lowest position. Endorsed to retail shift leader nurse.
--- NOTE | 2019-08-23 19:45 | NUR ---
RN OPENING NOTE RECEIVED PATIENT IN BED RESTING CONFUSED OPEN EYES,BREATHING IS EVEN AND UNLABORED NO SOB NOT DISCOMFORT NOTED AT THIS TIME,ON NGT FEEDING JEVITY 1.230 CC/HR AND ON HEPARIN DRIP 675 UNIT /HR IV SITE ON RIGHT UPPER ARM AND LEFT FOREARM INTACT PATENT,CONTINUE TO MONITOR.
--- NOTE | 2019-08-23 19:50 | NUR ---
RN NOTE APPT LAB RESULT CAME AT 18:37 AND APPT IS 49.2 NO CHANGE ON HEPARIN DRIP.
[2019-08-23] MEDS: CEFEPIME 1 GM in IV D5W 50 ML IV SCH (19:59)
[2019-08-23 20:00] VITALS: BP 137/70
[2019-08-23] MEDS: FLUCONAZOLE IN NS 100 MG in PREMIX 1 EA IV SCH ×2 (21:10)
[2019-08-24] VITALS (8 sets, daily range): BP systolic 105–131; BP diastolic 67–75
[2019-08-24] MEDS: VANCOMYCIN 500 MG in IV D5W 100 ML IV SCH ×2 (03:06→15:29)
--- NOTE | 2019-08-24 06:44 | NUR ---
RN CLOSING NOTE PATIENT RESTING IN BED COMFORTABLY,CONFUSED,NO SOB NOT ACUTE DISTRESS NOTED,ON 5L OXYGEN VIA NASAL CANNULA, NO PAIN NO DISCOMFORT NOTED,ALL DUE MEDS GIVEN VIA NGT,SHE TOLERATED WELL,IV SITE ON LEFT FOREARM AND RIGHT UPPER ARM INTACT PATENT,KEPT CLEAN AND DAY ALL THE TIME,ON HEPARIN DRIP 675 UNIT/HR THE NEXT APPT DONE AT 0500,NO RESULT YET,ENDORSE TO NEXT COMING SHIFT FOR CONTINUATION OF CARE.
--- NOTE | 2019-08-24 07:30 | NUR ---
RN OPENING NOTE Received patient at bed, resting calmly, A/O X1, NC noted delivering 5L of O2, with O2 saturation of 97% at this time. Patient is on tele-monitor with Sinus rhythm readings in 70's. Arambula cath noted, draining clear, yellow urine by gravity. IV line on L arm noted and BRANDON midline noted running Heparin @675 units/hr, intact and patent both. NG tube noted with feeding running @30 cc/hr Placement checked, no residual noted. Safety measures implemented, HOB elevated, side rails up, call light within reach, will cont to monitor
[2019-08-24] MEDS: DEXAMETHASONE SOD PHOSPHATE 10 MG/ML VIAL IV SCH (08:38)
[2019-08-24] MEDS: PANTOPRAZOLE 40 MG VIAL IV SCH (08:39)
[2019-08-24] MEDS: MUPIROCIN OINT 2% 22 GM TUBE SCH ×3 (08:43→22:17)
[2019-08-24] MEDS: Z GUARD REMEDY 2 OZ OINT TP SCH (08:44)
[2019-08-24 10:14] LABS: BASOPHILS % (AUTO) 0.2 % (0.0-2.0); HEMATOCRIT 33 % (33-45); HEMOGLOBIN 10.5 g/dL (11.5-14.8); LYMPHOCYTES # (AUTO) 0.9 /CMM (0.8-4.8); LYMPHOCYTES % (AUTO) 4.8 % (20.0-44.0); MEAN CORPUSCULAR HGB CONC 32 g/dl (31.0-36.0); MEAN CORPUSCULAR VOLUME 84 fL (82-100); MONOCYTES # (AUTO) 1.3 /CMM (0.1-1.30); MONOCYTES % (AUTO) 6.6 % (2.0-12.0); NEUTROPHILS # (AUTO) 17.4 /CMM (1.8-8.9); NEUTROPHILS % (AUTO) 88.4 % (43.0-81.0); PLATELET COUNT (AUTO) 238 /CMM (150-450); WHITE BLOOD COUNT (AUTO) 19.7 K/uL (4.3-11.0)
[2019-08-24 10:39] LABS: BILIRUBIN,TOTAL 0.3 mg/dL (0.2-1.0); CALCIUM, SERUM 7.7 mg/dL (8.5-10.1); CREATININE 0.6 mg/dL (0.6-1.3); MAGNESIUM 2.3 mg/dL (1.8-2.4); PHOSPHORUS 2.5 mg/dL (2.5-4.9); POTASSIUM 4.8 mmol/L (3.5-5.1)
[2019-08-24 10:49] LABS: ALBUMIN 1.4 g/dL (3.4-5.0)
--- NOTE | 2019-08-24 11:40 | NUR ---
RN NOTE APTT results came back @11;44. results are 48.4, according to protocol no change in rate, will run with the same rate of 675 units/hr, will cont to monitor closely
[2019-08-24] MEDS: HEPARIN INFUSION/D5W 500 ML IV PRN (11:54)
[2019-08-24 13:39] LABS: BAND % (MANUAL) 2 % (0.0-5.0); LYMPHOCYTES % (MANUAL) 2 % (16-48); MONOCYTES % (MANUAL) 6 % (0-11.0); MYELOCYTES % 1 % (0-0); NEUTROPHILS % (MANUAL) 89 (42-76)
[2019-08-24] MEDS: FUROSEMIDE 40 MG/4 ML VIAL IV SCH (16:43)
--- NOTE | 2019-08-24 16:45 | NUR ---
pharmacy called, notified about medication interaction between Lexopro and Diflucan, EKG needed, MD notified
[2019-08-24] MEDS: FERROUS SULFATE (325 MG) 325 MG/TAB TABLET PO SCH (17:00)
--- NOTE | 2019-08-24 17:18 | NUR ---
waiting for meds scheduled at 1700, not at [facility] yet
--- NOTE | 2019-08-24 18:40 | NUR ---
recived missing meds from pharmacy, will administer
[2019-08-24] MEDS: AMLODIPINE BESYLATE 2.5 MG TABLET PO SCH (18:42)
[2019-08-24] MEDS: ASCORBIC ACID 500 MG TABLET PO SCH (18:43)
--- NOTE | 2019-08-24 18:52 | NUR ---
ferrous sulfate is missing in [facility], pharmacy notified
--- NOTE | 2019-08-24 18:52 | NUR ---
RN CLOSING NOTES PATIENT REMAINS IN THE BED, SATURATING WELL (99%) ON 3L OF NC, HEPARIN IS RUNNING @ 675 UNITS/HR, TOLERATING WELL, NO S/SX OF BLEEDING. COMFORT NEEDS ARE MET, SAFETY MEASURES IMPLEMENTED, WILL ENDORSE TO VENDING ROUTE DRIVER NURSE
--- NOTE | 2019-08-24 19:20 | NUR ---
RN OPENING NOTES: PATIENT IN BED. NO RESPIRATORY DISTRESS. ON NC AT 5LPM VIA NC, TOLERATING WELL, SPO2 >95%. NO C/O PAIN. BRANDON MIDLINE AND (L) FA G20 C/D/I; FLUSHING WELL. BLACKWELL CATH INTACT AND PATENT; DRAINING CLEAR YELLOW URINE. NGT IN PLACE, TOLERATING FEEDING AT 40 MLS/HR, NO RESIDUAL. HOB ELEVATED, SIDE RAILS X 2 UP, BED LOCKED, LOW POSITION, ALARM ON. CALL LIGHT WITHIN REACH. WILL CONT. TO MONITOR. Addendum: 08/25/19 at 0332 by JONO HOWELL RN PATIENT REMAINS ON HEPARIN DRIP AT 675 UNITS/HR, NO BLEEDING NOTED, WILL CONT. TO MONITOR.
[2019-08-24] MEDS: CEFEPIME 1 GM in IV D5W 50 ML IV SCH (20:41)
[2019-08-24] MEDS: FLUCONAZOLE IN NS 100 MG in PREMIX 1 EA IV SCH ×2 (22:16)
[2019-08-24] MEDS: ATORVASTATIN 10 MG TABLET PO SCH (22:19)
[2019-08-25] VITALS (7 sets, daily range): BP systolic 108–141; BP diastolic 61–79
[2019-08-25] MEDS: VANCOMYCIN 500 MG in IV D5W 100 ML IV SCH ×2 (02:00→15:33)
--- NOTE | 2019-08-25 06:15 | NUR ---
RN NOTE: LAB AT BEDSIDE TO DRAW AM LABS. STILL AWAITING FOR PTT RESULT. HEPARIN AT 675 UNITS/HR. NO S/S OF BLEEDING. WILL CONT. TO MONITOR.
[2019-08-25 06:44] LABS: CALCIUM, SERUM 8.3 mg/dL (8.5-10.1); CARBON DIOXIDE 30 mmol/L (21-32); CHLORIDE 102 mmol/L (98-107); CREATININE 0.6 mg/dL (0.6-1.3); GLUCOSE 131 mg/dL (74-106); SODIUM SERUM 135 mmol/L (136-145); UREA NITROGEN, BLOOD 20 mg/dL (7-18)
[2019-08-25 06:58] LABS: BASOPHILS % (AUTO) 0.2 % (0.0-2.0); HEMATOCRIT 35 % (33-45); HEMOGLOBIN 10.8 g/dL (11.5-14.8); LYMPHOCYTES # (AUTO) 0.9 /CMM (0.8-4.8); MEAN CORPUSCULAR HGB CONC 31 g/dl (31.0-36.0); MEAN CORPUSCULAR VOLUME 87 fL (82-100); MONOCYTES # (AUTO) 1.5 /CMM (0.1-1.30); MONOCYTES % (AUTO) 8.2 % (2.0-12.0); NEUTROPHILS # (AUTO) 15.6 /CMM (1.8-8.9); NEUTROPHILS % (AUTO) 86.6 % (43.0-81.0); PLATELET COUNT (AUTO) 211 /CMM (150-450); RED BLOOD CELL COUNT(AUTO) 4.02 MIL/uL (4.0-5.2); WHITE BLOOD COUNT (AUTO) 18.1 K/uL (4.3-11.0)
--- NOTE | 2019-08-25 07:15 | NUR ---
RN CLOSING NOTES: PATIENT IN BED, ASLEEP, EASILY AROUSABLE. NO ACUTE DISTRESS. NO C/O PAIN. PTT RESULT STILL PENDING. CHARGE NURSE RYAN ROLDAN. ENDORSED TO AM RN FOR CONTINUITY OF CARE.
--- NOTE | 2019-08-25 07:20 | NUR ---
RN OPENING NOTES: RECEIVED PATIENT IN BED SLEEPING. NO RESPIRATORY DISTRESS. ON 5Lit MASK, TOLERATING WELL, SPO2 >95%. BRANDON MIDLINE AND (L) FA G20 , PATENT AND FLUSHING WELL. BLACKWELL CATH INTACT AND PATENT; DRAINING CLEAR YELLOW URINE. NGT IN PLACE, TOLERATING FEEDING AT 40 MLS/HR, NO RESIDUAL. HOB ELEVATED, SIDE RAILS X 2 UP, BED LOCKED, LOW POSITION, ALARM ON. CALL LIGHT WITHIN REACH. WILL CONTINUE TO MONITOR
[2019-08-25] MEDS: AMLODIPINE BESYLATE 2.5 MG TABLET PO SCH (09:06)
[2019-08-25] MEDS: FERROUS SULFATE (325 MG) 325 MG/TAB TABLET PO SCH (09:06)
[2019-08-25] MEDS: ASCORBIC ACID 500 MG TABLET PO SCH (09:06)
[2019-08-25] MEDS: FUROSEMIDE 40 MG/4 ML VIAL IV SCH (09:07)
[2019-08-25] MEDS: OLANZAPINE 5 MG TABLET PO SCH (09:07)
[2019-08-25] MEDS: ESCITALOPRAM OXALATE (10 MG) 10 MG TABLET PO SCH (09:07)
[2019-08-25] MEDS: Z GUARD REMEDY 2 OZ OINT TP SCH (09:09)
[2019-08-25] MEDS: MUPIROCIN OINT 2% 22 GM TUBE SCH ×2 (09:10→21:49)
[2019-08-25] MEDS: MULTIVITAMINS,THERAGRAN 1 UDTAB TABLET PO SCH (09:18)
[2019-08-25] MEDS: PANTOPRAZOLE 40 MG VIAL IV SCH (09:19)
[2019-08-25] MEDS: DEXAMETHASONE SOD PHOSPHATE 10 MG/ML VIAL IV SCH (09:19)
--- NOTE | 2019-08-25 10:18 | NUR ---
WOUND CARE FOLLOW UP: REVIEWED CHART, NURSING DOCUMENTATION AND PHOTOS WHICH CONTINUE TO SHOW INTACT DEEP TISSUE INJURY TO SACRUM WHICH EXTENDS TO BUTTOCKS AND WAS PRESENT ON ADMISSION. LEFT LOWER LEG AND FOOT ARE VERY DEEP PURPLE COLOR. MD AWARE. RECOMMENDATIONS MADE FOR SKIN PROTECTION. DISCUSSED WITH NURSING STAFF. PT IS ON [place] ISOFLEX LOW AIRLOSS BED. MD IN AGREEMENT WITH PLAN OF CARE.
[2019-08-25 11:02] LABS: LYMPHOCYTES % (MANUAL) 5 % (16-48); MONOCYTES % (MANUAL) 4 % (0-11.0); NEUTROPHILS % (MANUAL) 90 (42-76); PROMYELOCYTES % 1 % (0-0)
--- NOTE | 2019-08-25 12:00 | NUR ---
D/C HEPARIN DRIP , CLARIFIED WITH PHARMACY AND MD ALVARADO.
--- NOTE | 2019-08-25 12:05 | NUR ---
PATIENT HAS BRUISES ON BILATERAL HANDS. CLARIFIED LOVENOX DUE AT 1400 WITH MD ALVARADO. PER MD JIMENEZ TO ADMINISTER.
[2019-08-25] MEDS: ENOXAPARIN SODIUM 60 MG/0.6 ML DISP.SYRIN SQ SCH (14:27)
[2019-08-25] MEDS: JEVITY 1.2 CAL 1,000 ML BOTTLE GT PRN (18:52)
--- NOTE | 2019-08-25 19:18 | NUR ---
RN CLOSING NOTES WILL ENDORSE TO PM NURSE FOR COLIN. PATIENT IS IN IN BED SLEEPING. PATIENT ON MASK 5L O2 97-99%. PATIENT WILL HAVE SWALLOW EVAL AGAIN 08/25. SAFETY MEASURES IN PLACE.
[2019-08-25] MEDS: CEFEPIME 1 GM in IV D5W 50 ML IV SCH (19:39)
--- NOTE | 2019-08-25 19:45 | NUR ---
RN OPENING NOTES: PATIENT IN BED. UNLABORED BREATHING. ON NC AT 5LPM VIA NC, TOLERATING WELL, SPO2 >95%. NO C/O PAIN. BRANDON MIDLINE AND (L) FA G20 C/D/I; FLUSHING WELL. BLACKWELL CATH INTACT AND PATENT; DRAINING CLEAR YELLOW URINE. NGT IN PLACE, CLAMPED, PLACED ON NPO FOR PEG PLACEMENT TOMORROW AM. S/P HEPARIN DRIP, NO SIGNS OF BLEEDING. HOB ELEVATED, SIDE RAILS X 2 UP, BED LOCKED, LOW POSITION, ALARM ON. CALL LIGHT WITHIN REACH. WILL CONT. TO MONITOR. Addendum: 08/26/19 at 0727 by JONO HOWELL RN 1929: PATIENT'S NGT NOTED TO BE CLOGGED. NGT CLAMPED. PATIENT IS NPO AND WILL HAVE PEG PLACEMENT PROCEDURE TOMORROW. CHARGE NURSE MADE AWARE.
--- NOTE | 2019-08-25 20:15 | NUR ---
RN NOTE: WITNESSED WITH ANOTHER RN LIDYA FOR CONSENT FROM CINDY (PATIENT'S SON AND DPOA) TO PEG PLACEMENT PROCEDURE TOMORROW AM.
[2019-08-25] MEDS: FLUCONAZOLE IN NS 100 MG in PREMIX 1 EA IV SCH ×2 (21:07)
[2019-08-25] MEDS: ATORVASTATIN 10 MG TABLET PO SCH (21:24)
[2019-08-26] VITALS: BP 109/62
[2019-08-26] MEDS: VANCOMYCIN 500 MG in IV D5W 100 ML IV SCH ×2 (02:00→14:07)
[2019-08-26 04:00] VITALS: BP 121/70
[2019-08-26 06:40] LABS: BASOPHILS % (AUTO) 0.1 % (0.0-2.0); HEMATOCRIT 36 % (33-45); HEMOGLOBIN 11.2 g/dL (11.5-14.8); LYMPHOCYTES # (AUTO) 1.1 /CMM (0.8-4.8); LYMPHOCYTES % (AUTO) 5.8 % (20.0-44.0); MEAN CORPUSCULAR HGB CONC 32 g/dl (31.0-36.0); MEAN CORPUSCULAR VOLUME 86 fL (82-100); MONOCYTES # (AUTO) 1.4 /CMM (0.1-1.30); MONOCYTES % (AUTO) 7.5 % (2.0-12.0); NEUTROPHILS # (AUTO) 15.9 /CMM (1.8-8.9); NEUTROPHILS % (AUTO) 86.6 % (43.0-81.0); PLATELET COUNT (AUTO) 267 /CMM (150-450); RED BLOOD CELL COUNT(AUTO) 4.14 MIL/uL (4.0-5.2); WHITE BLOOD COUNT (AUTO) 18.4 K/uL (4.3-11.0)
[2019-08-26 06:56] LABS: CALCIUM, SERUM 8.5 mg/dL (8.5-10.1); CREATININE 0.6 mg/dL (0.6-1.3); POTASSIUM 4.3 mmol/L (3.5-5.1)
--- NOTE | 2019-08-26 07:27 | NUR ---
RN CLOSING NOTES: PATIENT IN BED, ASLEEP, EASILY AROUSABLE. PATIENT WILL HAVE PEG PLACEMENT TODAY. ENDORSED TO AM RN FOR CONTINUITY OF CARE.
[2019-08-26 08:00] VITALS: BP 135/76
--- NOTE | 2019-08-26 08:01 | NUR ---
RN OPENING NOTES RECEIVED PATIENT SLEEPING IN BED COMFORTABLY, EASILY AROUSED. PT IS AOX1, VERBAL, AND BED BOUND. SHE IS ON 5 L OF OXYGEN VIA NC, TOLERATING WELL. TELE MONITOR SHOWING SR. [place] CATH IS PATENT AND INTACT, DRAINING CLEAR AND YELLOW URINE BY GRAVITY. LLE EXTREMITY ISCHEMIA PRESENT. SACRAL REDNESS PRESENT, WILL ADDRESS PER WOUND CARE PLAN. PT IS NPO, SCHEDULED FOR PEG PLACEMENT THIS AM. PRE-OP CHECKLIST AND CONSENT FORMS HAVE BEEN SIGNED. IV SITE ON LFA 20 G AND [place] [employer]LINE IS PATENT AND INTACT. COVID ISO HAS BEEN IMPLEMENTED AND ENFORCED. NGT INTACT BUT CLOGGED. SAFETY MEASURES HAVE BEEN IMPLEMENTED, CALL LIGHT IS WITHIN REACH, BED IS IN LOWEST AND LOCKED POSITION, SIDE RAILS UP X2, WILL CONTINUE TO MONITOR FOR ANY CHANGES.
[2019-08-26] MEDS: OLANZAPINE 5 MG TABLET PO SCH (09:00)
[2019-08-26] MEDS: AMLODIPINE BESYLATE 2.5 MG TABLET PO SCH (09:00)
[2019-08-26] MEDS: FERROUS SULFATE (325 MG) 325 MG/TAB TABLET PO SCH (09:00)
[2019-08-26] MEDS: MUPIROCIN OINT 2% 22 GM TUBE SCH ×2 (09:00→20:53)
[2019-08-26] MEDS: ESCITALOPRAM OXALATE (10 MG) 10 MG TABLET PO SCH (09:00)
[2019-08-26] MEDS: PANTOPRAZOLE 40 MG VIAL IV SCH (09:00)
[2019-08-26] MEDS: MULTIVITAMINS,THERAGRAN 1 UDTAB TABLET PO SCH (09:00)
[2019-08-26] MEDS: Z GUARD REMEDY 2 OZ OINT TP SCH (09:00)
[2019-08-26] MEDS: DEXAMETHASONE SOD PHOSPHATE 10 MG/ML VIAL IV SCH (09:00)
[2019-08-26] MEDS: ASCORBIC ACID 500 MG TABLET PO SCH (09:00)
--- NOTE | 2019-08-26 09:07 | NUR ---
RN NOTES PT HAS BEEN PICKED UP FROM UNIT FOR PEG PLACEMENT SCHEDULED THIS AM. LEFT UNIT WITH OR NURSE AND TRANSPORT POLITICAL CONSULTANT VIA [facility]. UNABLE TO ADMIN MORNING MEDICATION BC PT NPO DIAGNOSIS AND NOT IN UNIT
[2019-08-26 09:47] LABS: LYMPHOCYTES % (MANUAL) 4 % (16-48); MONOCYTES % (MANUAL) 4 % (0-11.0); NEUTROPHILS % (MANUAL) 92 (42-76)
--- NOTE | 2019-08-26 09:58 | NUR ---
RN NOTES PT HAS RETURNED FROM OR IN STABLE CONDITION. BP 143/78, HR 92, 95% O2, 18 RR, AND 97.7, WILL CONTINUE TO MONITOR
--- NOTE | 2019-08-26 10:23 | NUR ---
per anaesthesia need echo prior to sx,dr. rabago made aware and ok to do echo today.reliability technician made aware.
--- NOTE | 2019-08-26 10:24 | NUR ---
ff. up with surgery patient scheduled for amputation with dr. feliciano at 2pm tmrw.
[2019-08-26 12:00] VITALS: BP 114/55
[2019-08-26] MEDS: FENOFIBRATE NANOCRYS (145 MG) 145 MG TABLET PO SCH (12:54)
[2019-08-26] MEDS: ENOXAPARIN SODIUM 60 MG/0.6 ML DISP.SYRIN SQ SCH ×2 (14:00→15:12)
--- NOTE | 2019-08-26 15:08 | NUR ---
RN NOTES PER SOPHIA KRAMER TO ADMIN TODAYS DOSE OF LOVENOX. LEFT AKA AMPUTATION POSTPONED TO 1600 08/27/2019, WILL CONTINUE TO MONITOR
[2019-08-26] MEDS ORDERED: IV NS 0.9% 1,000 ML IV SCH (15:30)
[2019-08-26 16:00] VITALS: BP_SYST 105; BP_SYST 129; BP_DIAS 18; BP_DIAS 64
[2019-08-26] MEDS: JEVITY 1.2 CAL 1,000 ML BOTTLE GT PRN (18:21)
--- NOTE | 2019-08-26 19:22 | NUR ---
RN CLOSING NOTES PT IS RESTING IN BED COMFORTABLY, NO ACUTE CHANGES OCCURRED, TOLERATED PEG PLACEMENT WELL. SCHEDULED FOR LLE AKA TOMORROW AFTERNOON. SAFETY MEASURES HAVE BEEN IMPLEMENTED, PT HAS BEEN ENDORSED TO NIGHTSHIFT RN FOR COLIN.
--- NOTE | 2019-08-26 19:40 | NUR ---
STEEL WELDER OPENING NOTES RECEIVED PATIENT FROM MORNING SHIFT, ALERT AND ORIENTED X 1. BREATHING REGULAR AND UNLABORED ON OXYGEN AT 5L/MIN VIA NASAL CANNULA. ON CARDIAC MONITORING WITH NSR AT 90bpm. RIGHT UPPER ARM MIDLINE INTACT AND PATENT, INFUSING WELL WITH NO BLEEDING OR S/S OF INFILTRATION NOTED. NO S/S OF PAIN/DISCOMFORT NOTED AT THIS TIME. BED LOW AND LOCKED ON SEMI FOWLERS POSITION. CALL LIGHT IN REACH. WILL CONTINUE TO MONITOR.
[2019-08-26] MEDS: CEFEPIME 1 GM in IV D5W 50 ML IV SCH (19:41)
[2019-08-26 20:00] VITALS: BP 116/75
[2019-08-26] MEDS: FLUCONAZOLE IN NS 100 MG in PREMIX 1 EA IV SCH ×2 (20:34)
[2019-08-26] MEDS: ATORVASTATIN 10 MG TABLET PO SCH (21:06)
[2019-08-27] VITALS: BP 105/65
[2019-08-27] MEDS: IV NS 0.9% 1,000 ML IV PRN (00:09)
--- NOTE | 2019-08-27 00:10 | NUR ---
ASBESTOS REMOVAL SUPERVISOR NOTES GTUBE FEEDING TURNED OFF. IV INFUSION OF NS AT 60cc/hr STARTED.
[2019-08-27] MEDS: VANCOMYCIN 500 MG in IV D5W 100 ML IV SCH ×2 (02:45→18:18)
[2019-08-27 04:00] VITALS: BP 128/69
--- NOTE | 2019-08-27 06:30 | NUR ---
WARPER CREELER CLOSING NOTES PATIENT IN BED ALERT AND ORIENTED X 1. AFEBRILE WITH NO S/S OF DISTRESS OBSERVED. MAINTAINED ON CARDIAC MONITORING WITH NSR WITH OCCASIONAL PVC's AT 78bpm. RIGHT UPPER ARM MIDLINE PATENT AND INFUSING WELL. ON NOTHING BY MOUTH EXCEPT MEDS, PEG TUBE INTACT WITH NO RESIDUAL ASPIRATED. BLACKWELL CATH PATENT, DRAINING CLEAR YELLOW URINE WITH 250cc OUTPUT. NO S/S OF PAIN/DISCOMFORT NOTED AT THIS TIME. BED LOW AND LOCKED ON SEMI FOWLERS POSITION. CALL LIGHT IN REACH. WILL ENDORSE TO MORNING SHIFT FOR COLIN.
[2019-08-27 07:19] LABS: BASOPHILS % (AUTO) 0.1 % (0.0-2.0); EOSINOPHILS % (AUTO) 0.3 % (0.0-6.0); HEMATOCRIT 33 % (33-45); HEMOGLOBIN 10.4 g/dL (11.5-14.8); LYMPHOCYTES # (AUTO) 0.9 /CMM (0.8-4.8); LYMPHOCYTES % (AUTO) 7.8 % (20.0-44.0); MEAN CORPUSCULAR HGB CONC 31 g/dl (31.0-36.0); MEAN CORPUSCULAR VOLUME 87 fL (82-100); MONOCYTES # (AUTO) 0.7 /CMM (0.1-1.30); MONOCYTES % (AUTO) 6.4 % (2.0-12.0); NEUTROPHILS # (AUTO) 9.5 /CMM (1.8-8.9); NEUTROPHILS % (AUTO) 85.4 % (43.0-81.0); PLATELET COUNT (AUTO) 274 /CMM (150-450); WHITE BLOOD COUNT (AUTO) 11.1 K/uL (4.3-11.0)
[2019-08-27 07:29] LABS: CARBON DIOXIDE 27 mmol/L (21-32); CHLORIDE 101 mmol/L (98-107); CREATININE 0.5 mg/dL (0.6-1.3); GLUCOSE 83 mg/dL (74-106); POTASSIUM 4.3 mmol/L (3.5-5.1); SODIUM SERUM 134 mmol/L (136-145); UREA NITROGEN, BLOOD 22 mg/dL (7-18)
[2019-08-27 08:00] VITALS: BP 120/69
--- NOTE | 2019-08-27 08:00 | NUR ---
MOTION PICTURES CARTOONIST OPEN NOTES PATIENT IN BED ALERT AND ORIENTED X 1. AFEBRILE WITH NO S/S OF DISTRESS OBSERVED. MAINTAINED ON CARDIAC MONITORING WITH NSR HR 76. RIGHT UPPER ARM MIDLINE PATENT AND INFUSING WELL. ON NOTHING BY MOUTH EXCEPT MEDS, PEG TUBE INTACT WITH NO RESIDUAL ASPIRATED. BLACKWELL CATH PATENT, DRAINING CLEAR YELLOW URINE OUTPUT. NO S/S OF PAIN/DISCOMFORT NOTED AT THIS TIME. BED LOW AND LOCKED ON SEMI FOWLERS POSITION. CALL LIGHT WITHIN REACH.
[2019-08-27] MEDS: FENOFIBRATE NANOCRYS (145 MG) 145 MG TABLET PO SCH (08:18)
[2019-08-27] MEDS: PANTOPRAZOLE 40 MG VIAL IV SCH (08:18)
[2019-08-27] MEDS: AMLODIPINE BESYLATE 2.5 MG TABLET PO SCH (08:19)
[2019-08-27] MEDS: FERROUS SULFATE (325 MG) 325 MG/TAB TABLET PO SCH (08:19)
[2019-08-27] MEDS: ASCORBIC ACID 500 MG TABLET PO SCH (08:19)
[2019-08-27] MEDS: DEXAMETHASONE SOD PHOSPHATE 10 MG/ML VIAL IV SCH (08:19)
[2019-08-27] MEDS: MULTIVITAMINS,THERAGRAN 1 UDTAB TABLET PO SCH (08:19)
[2019-08-27] MEDS: OLANZAPINE 5 MG TABLET PO SCH (08:19)
[2019-08-27] MEDS: Z GUARD REMEDY 2 OZ OINT TP SCH (08:19)
[2019-08-27] MEDS: ESCITALOPRAM OXALATE (10 MG) 10 MG TABLET PO SCH (08:19)
[2019-08-27] MEDS: MUPIROCIN OINT 2% 22 GM TUBE SCH ×2 (09:29→21:56)
[2019-08-27 11:57] VITALS: BP 104/62
[2019-08-27 12:00] VITALS: BP 104/62
[2019-08-27] MEDS ORDERED: BUPIVACAINE MPF 0.5% W/EPI INJ 30 ML VIAL ONE (13:37)
--- NOTE | 2019-08-27 15:02 | NUR ---
DUE FOR VANCO IV- VANCO TROUGH RESULT STILL PENDING.
--- NOTE | 2019-08-27 15:05 | NUR ---
VANCO IV HELD FOR NOW DUE TO LT AKA SX. NOTIFIED PHARMACIST AND WILL CALL PHARMACY WHEN PT COMES BACK FROM O.R. FOR PHARMACIST TO ADJUST THE SCHEDULE FOR VANCO IV ADMINISTRATION.
--- NOTE | 2019-08-27 15:05 | NUR ---
PT BROUGHT TO O.R. FOR LT AKA SX WITH STABLE V/S.
[2019-08-27] MEDS ORDERED: HYDROMORPHONE INJ 2 MG/ML DISP.SYRIN ONE (15:36)
[2019-08-27] MEDS ORDERED: CELLULOSE,OXIDIZED 1 PKT EACH MC ONE (15:58)
--- NOTE | 2019-08-27 17:30 | NUR ---
PT CAME BACK FROM O.R. S/P LT AKA SX BY DR STALEY WITH STABLE V/S. BP 127/71 HR 102 RR 18 T 97.8 O2 SAT 97% ON O2 AT 5L/MIN VIA NC. WITH BLACKWELL CATHETER INTACT TO BLACKWELL BAG DRAINING YELLOW URINE WITH MODERATE OUTPUT. WITH DAMIAN DRAIN TO LT AKA WITH DRESSING INTACT, CLEAN AND DRY. WILL CONTINUE TO MONITOR.
[2019-08-27] MEDS ORDERED: JEVITY 1.2 CAL 1,000 ML BOTTLE GT SCH (18:00)
--- NOTE | 2019-08-27 18:18 | NUR ---
CALLED АННА EDWARDS TO MAKE VANCO SCHEDULE ASSIGNMENTS BECAUSE PT WAS IN O.R. FOR SX AT 1500 WHICH WAS SCHEDULED FOR VANCO ADMINISTRATION. PT CAME BACK FROM O.R. AT 1730, CALLED THE PHARMACIST BUT PHARMACISTGRACE ATTENDED TO A [facility] AND WASN'T ABLE TO MAKE VANCO ADJUSTMENTS. CALLED PHARMACISTGRACE AGAIN WHO STATED TO JUST ADMINISTER THE VANCO IV RIGHT NOW AND SHE WILL DO THE VANCO ADJUSTMENT SCHEDULE LATER.
[2019-08-27] MEDS ORDERED: JEVITY 1.2 CAL 1,000 ML BOTTLE GT PRN (19:23)
--- NOTE | 2019-08-27 19:25 | NUR ---
RN OPENING NOTES: RECEIVED PT A/OX1; IN BED RESTING COMFORTABLY. PATIENT IN NO S/SX OF ACUTE DISTRESS AT THIS TIME. NO SOB NOTED. PATIENT'S BREATHING IS EVEN AND UNLABORED. PATIENT IS ON 5L OF OXYGEN VIA NC; TOLERATING WELL. PATIENT ON TELE MONITORING READING SINUS RHYTHM HR IS @80s AT TIME OF RECEIVED. PATIENT HAS A PEG TUBE IN PLACED WITH RUNNING TUBE FEEDING OF JEVITY 1.2 40ML/HR; PT TOLERATES THE FEEDING WELL. NOTED IV SITE ON R UA MIDLINE #20 ; PATENT IN INTACT,NO S/S OF INFECTION OR INFILTRATION. BLACKWELL CATH IN PLACE, MODERATE YELLOW URINE OUTPUT NOTED. PATIENT IS S/P L AKA; WITH DAMIAN DRAIN IN PLACE;INTACT; ALSO NOTED SX WOUND DRESSING TO BE CLEAN , DRY AND INTACT DURING RECEIVED.SAFETY MEASURES HAVE BEEN PROVIDED AND IMPLEMENTED. PATIENT BED ALARM IS ON. HEAD OF BED ELEVATED. BED IS LOCKED, IN LOWEST POSITION AND SIDE RAILS UP. CALL LIGHT WITHIN REACH OF THE PATIENT. ISOLATION PRECAUTIONS IN PLACE. WILL CONTINUE TO MONITOR AND REASSESS FOR ANY CHANGES.
[2019-08-27 20:00] VITALS: BP 102/59
[2019-08-27] MEDS: CEFEPIME 1 GM in IV D5W 50 ML IV SCH (20:03)
[2019-08-27] MEDS: FLUCONAZOLE IN NS 100 MG in PREMIX 1 EA IV SCH ×2 (20:15)
[2019-08-27] MEDS: ATORVASTATIN 10 MG TABLET PO SCH (21:54)
[2019-08-28] VITALS: BP 100/58
[2019-08-28] MEDS: IV NS 0.9% 1,000 ML IV PRN (03:06)
[2019-08-28 04:00] VITALS: BP 116/70
[2019-08-28] MEDS: VANCOMYCIN 500 MG in IV D5W 100 ML IV SCH ×2 (05:31→17:34)
[2019-08-28 06:27] LABS: HEMATOCRIT 30 % (33-45); HEMOGLOBIN 9.5 g/dL (11.5-14.8); LYMPHOCYTES # (AUTO) 0.5 /CMM (0.8-4.8); LYMPHOCYTES % (AUTO) 2.6 % (20.0-44.0); MEAN CORPUSCULAR HGB CONC 32 g/dl (31.0-36.0); MEAN CORPUSCULAR VOLUME 85 fL (82-100); MONOCYTES # (AUTO) 0.9 /CMM (0.1-1.30); NEUTROPHILS # (AUTO) 16.5 /CMM (1.8-8.9); NEUTROPHILS % (AUTO) 92.4 % (43.0-81.0); PLATELET COUNT (AUTO) 275 /CMM (150-450); RED BLOOD CELL COUNT(AUTO) 3.51 MIL/uL (4.0-5.2); WHITE BLOOD COUNT (AUTO) 17.9 K/uL (4.3-11.0)
--- NOTE | 2019-08-28 06:29 | NUR ---
RN CLOSING NOTE: PATIENT REMAINS IN ROOM. NO SIGNS OF RESPIRATORY DISTRESS. SAFETY MEASURES IMPLEMENTED, BED IN LOWEST POSITION, LOCKED, SIDE RAILS UP, CALL LIGHT WITHIN REACH. ALL NEEDS AND ORDERS ADDRESSED DURING THE SHIFT. ALL DUE MEDS GIVEN ORDERED & SCHEDULED ; PATIENT TOLERATED WELL.PATIENT KEPT CLEAN AND COMFORTABLE WITHIN THE SHIFT. ENDORSED TO INCOMING SHIFT RN FOR CONTINUITY OF CARE.
[2019-08-28 06:54] LABS: CALCIUM, SERUM 8.1 mg/dL (8.5-10.1); CREATININE 0.6 mg/dL (0.6-1.3); POTASSIUM 4.5 mmol/L (3.5-5.1)
--- NOTE | 2019-08-28 07:30 | NUR ---
RN OPEN NOTES Received patient in bed, A/Ox1, on NC at 5L O2, saturating well 98%, no s/sx of distress noted. Patient is on tele monitor with sinus rhythm readings 70s,. Patient is post op status after left AKA, having DAMIAN drain, emptied at 0730 20ml of red blood, no odor present.G-tube noted, feeding is running at 40cc/hr, tolerating well, site is intact, flushed well. Right upper midline #20 noted, running NS @60cc/hr, intact and patent. Arambula cat in place, draining yellow clear urine by gravity. Safety measures implemented, all light within reach, bed in lowest position, will cont to monitor
[2019-08-28 08:00] VITALS: BP 112/61
[2019-08-28] MEDS: DEXAMETHASONE SOD PHOSPHATE 10 MG/ML VIAL IV SCH (08:08)
[2019-08-28] MEDS: ESCITALOPRAM OXALATE (10 MG) 10 MG TABLET PO SCH (08:09)
[2019-08-28] MEDS: FERROUS SULFATE (325 MG) 325 MG/TAB TABLET PO SCH (08:09)
[2019-08-28] MEDS: OLANZAPINE 5 MG TABLET PO SCH (08:09)
[2019-08-28] MEDS: MULTIVITAMINS,THERAGRAN 1 UDTAB TABLET PO SCH (08:09)
[2019-08-28] MEDS: APIXABAN 2.5 MG TABLET PO SCH ×2 (08:12→17:32)
[2019-08-28] MEDS: FENOFIBRATE NANOCRYS (145 MG) 145 MG TABLET PO SCH (08:13)
[2019-08-28] MEDS: PANTOPRAZOLE 40 MG VIAL IV SCH (08:13)
[2019-08-28] MEDS: ASCORBIC ACID 500 MG TABLET PO SCH (08:13)
[2019-08-28] MEDS: Z GUARD REMEDY 2 OZ OINT TP SCH (08:14)
[2019-08-28] MEDS: MUPIROCIN OINT 2% 22 GM TUBE SCH ×2 (08:22→21:00)
[2019-08-28] MEDS: AMLODIPINE BESYLATE 2.5 MG TABLET PO SCH (08:22)
[2019-08-28] MEDS: ACETAMINOPHEN 650 MG/SUPP.RECT RC PRN (09:41)
[2019-08-28] MEDS: JEVITY 1.2 CAL 1,000 ML BOTTLE GT PRN (11:25)
[2019-08-28 12:00] VITALS: BP 123/69
--- NOTE | 2019-08-28 13:09 | NUR ---
per Dr. Jossue fox dc tele
[2019-08-28 16:00] VITALS: BP 118/86
--- NOTE | 2019-08-28 19:20 | NUR ---
MS RN OPENING NOTES: RECEIVED PATIENT IN BED, AWAKE, A/O X1, CONFUSED. HOB ELEVATED AT 35 DEGREES AT ALL TIMES. WITH O2 AT 3L/MIN NC. WITH GT FEEDING RUNNING AT 40ML/HR. NO LEAKING ON THE SITE, WITH VERY SMALL AMOUNT OF BLACKISH STAINED ON THE SMALL DRESSING AROUND THE SITE. WITH DRESSING ON THE LEFT AKA CLEAN, DRY AND INTACT, NO BLEEDING NOTED. WITH DAMIAN ON THE LEFT AKA INTACT, WITH SEROSANGUINOUS OUTPUT SMALL AMOUNT. WITH BLACKWELL CATHETER INTACT,DRAINING TO A CLEAR YELLOW URINE. BED ALARM ON. BED INLOWEST AND LOCKED POSITION. CALL LIGHT WITHIN REACH.
--- NOTE | 2019-08-28 19:31 | NUR ---
RN CLOSING NOTES Patein remains in bed with the same settings of oxygen and feeding, tolerating well, IV line is intact, flashing well, receiving IV fluids @60cc/hr. Dressing changed, meds are given, comfort needs are met. safety measures implemented, bed li lowest position, call light within reach, will endorse to PM shift RN for COLIN
[2019-08-28 20:00] VITALS: BP 114/71
[2019-08-28] MEDS: CEFEPIME 1 GM in IV D5W 50 ML IV SCH (20:51)
[2019-08-28] MEDS: ATORVASTATIN 10 MG TABLET PO SCH (20:52)
--- NOTE | 2019-08-28 21:09 | NUR ---
NO GT RESIDUAL.
[2019-08-28] MEDS: FLUCONAZOLE IN NS 100 MG in PREMIX 1 EA IV SCH ×2 (22:49)
[2019-08-29 04:00] VITALS: BP 131/75
--- NOTE | 2019-08-29 06:00 | NUR ---
MS RN CLOSING NOTES: PATIENT IN BED, AWAKE A/O X2,CONFUSED. BED ALARM ON. BED IN LOWEST AND LOCKED POSITION. CALL LIGHT WITHIN REACH. NO SOB. NO COMPLAIN OF PAIN. TURNED AND REPOSITIONED. RIGHT HEEL OFFLOADED. BIOPATCH ON THE GT SITE SOAKED WITH BLACKISH DRAINAGE, NO ODOR NOTED,REMOVED AND SITE CLEANSED WITH NS AND PAT DRIED AND GAUZE APPLIED. HOB ELEVATED AT ALL TIMES. NO GT RESIDUAL. NO SKIN IRRITATIONS ON THE GT SITE. WITH DAMIAN INTACT DRAINED 6ML OUTPUT. WIOTH BLACKWELL CATHETER INTACT DRAINING CLEAR YELLOW URINE.
--- NOTE | 2019-08-29 07:20 | NUR ---
120-1: Received patient in bed. Awake, alert and oriented x1. Isolation precaution for COVID-[address] On cont. 02 via NC @ 3lpm. NO SOB and not in respiratory distress, saturation noted @ 94%. No pain noted on patient. IV site clean, dry, patent and intact. Arambula catheter in place and draining yellow urine. Call light in reach. Bed locked, low and at semi-mcadams's position. Side rails up x3. Safety ensured and obsreved. Will continue to monitor.
[2019-08-29 08:00] VITALS: BP 122/77
[2019-08-29 08:15] LABS: BASOPHILS % (AUTO) 0.2 % (0.0-2.0); EOSINOPHILS % (AUTO) 0.2 % (0.0-6.0); HEMATOCRIT 32 % (33-45); HEMOGLOBIN 10.1 g/dL (11.5-14.8); LYMPHOCYTES # (AUTO) 0.9 /CMM (0.8-4.8); LYMPHOCYTES % (AUTO) 6.8 % (20.0-44.0); MEAN CORPUSCULAR HGB CONC 32 g/dl (31.0-36.0); MEAN CORPUSCULAR VOLUME 86 fL (82-100); MONOCYTES # (AUTO) 0.7 /CMM (0.1-1.30); MONOCYTES % (AUTO) 5.3 % (2.0-12.0); NEUTROPHILS # (AUTO) 11.8 /CMM (1.8-8.9); NEUTROPHILS % (AUTO) 87.5 % (43.0-81.0); PLATELET COUNT (AUTO) 289 /CMM (150-450); RED BLOOD CELL COUNT(AUTO) 3.69 MIL/uL (4.0-5.2); WHITE BLOOD COUNT (AUTO) 13.5 K/uL (4.3-11.0)
[2019-08-29] MEDS: OLANZAPINE 5 MG TABLET PO SCH (08:42)
[2019-08-29] MEDS: FERROUS SULFATE (325 MG) 325 MG/TAB TABLET PO SCH (08:42)
[2019-08-29] MEDS: DEXAMETHASONE SOD PHOSPHATE 10 MG/ML VIAL IV SCH (08:42)
[2019-08-29] MEDS: PANTOPRAZOLE 40 MG VIAL IV SCH (08:42)
[2019-08-29] MEDS: ASCORBIC ACID 500 MG TABLET PO SCH (08:42)
[2019-08-29] MEDS: AMLODIPINE BESYLATE 2.5 MG TABLET PO SCH (08:42)
[2019-08-29] MEDS: MULTIVITAMINS,THERAGRAN 1 UDTAB TABLET PO SCH (08:42)
[2019-08-29] MEDS: ESCITALOPRAM OXALATE (10 MG) 10 MG TABLET PO SCH (08:43)
[2019-08-29] MEDS: FENOFIBRATE NANOCRYS (145 MG) 145 MG TABLET PO SCH (08:43)
[2019-08-29] MEDS: APIXABAN 2.5 MG TABLET PO SCH ×2 (08:58→17:45)
[2019-08-29 09:03] LABS: CALCIUM, SERUM 8.2 mg/dL (8.5-10.1); CREATININE 0.6 mg/dL (0.6-1.3); POTASSIUM 5.4 mmol/L (3.5-5.1)
[2019-08-29] MEDS: Z GUARD REMEDY 2 OZ OINT TP SCH (09:20)
[2019-08-29] MEDS: MUPIROCIN OINT 2% 22 GM TUBE SCH ×2 (09:20→23:40)
[2019-08-29] MEDS: JEVITY 1.2 CAL 1,000 ML BOTTLE GT PRN (11:51)
[2019-08-29] MEDS: ACETAMINOPHEN 650 MG/SUPP.RECT RC PRN (15:18)
[2019-08-29 16:00] VITALS: BP 149/75
--- NOTE | 2019-08-29 19:10 | NUR ---
Rn CLOSING NOTE No acute changes noted on shift. Patient remains in bed. Awake, alert and oriented x1. Isolation precaution for COVID-[address] On cont. 02 via NC @ 3lpm. NO SOB and not in respiratory distress, saturation noted @ 96%. No pain noted on patient. IV site clean, dry, patent and intact. Arambula catheter in place and draining yellow urine. Call light in reach. Bed locked, low and at semi-mcadams's position. Side rails up x3. Safety ensured and obsreved. Due medications given. Needs attended to. Treatment given as ordered. Will endorse to oncoming shift for COLIN.
--- NOTE | 2019-08-29 19:21 | NUR ---
MS RN: RECEIVED PATIENT Patient in bed, awake. A/O x1 to self only. Left AKA with dry gauze and MATHEW wrap clean and dry. BRANDON midline intact. Gtube feeding at 40 ml/hr, maintained upright posture in bed. Contact isolation, Droplet precaution with Face shield. Maintained safety.
[2019-08-29] MEDS: ATORVASTATIN 10 MG TABLET PO SCH (21:16)
[2019-08-29] MEDS ORDERED: MUPIROCIN OINT 2% 22 GM TUBE ONE (23:38)
[2019-08-30 04:18] VITALS: BP 133/71
--- NOTE | 2019-08-30 06:35 | NUR ---
MS RN: END OF SHIFT REPORT Patient in bed, slept well. O2 3L via NC with Oxygen saturation in the low 90's, denies shortness of breath. Left AKA radha intact, dressing changed done, no c/o pain. DAMIAN x1 to bulb suction, minimal output sanguineous 25ml. BRANDON midline in place, Off antibiotic, afebrile overnight. Arambula cath to gravity, no BM this shift. Gtube feeding at 40 ml/hr, maintained upright position. ST for re eval. Skin precaution, turn and reposition. Contact isolation, Droplet precaution with Face shield.
--- NOTE | 2019-08-30 07:30 | NUR ---
RN OPENING NOTES Received patient at bed, sleeping. A/Ox1, on NC @ 3L, saturating well 99%, no s/x of resp distress or SOB noted , Feeding tube noted, flushed, intact and patent, running feeding @40cc/hr,; tolerating well, Midline on R UA noted, intact and patent, flushed. Arambula cath in place draining yellow clean urine by gravity. L AKA noted, dressing is intact, Sacral redness and wound noted, will provide care per protocol. Safety measures implemented, call light within reach, bed in lowest position, will cont care and monitor closely.
[2019-08-30 07:40] LABS: BASOPHILS % (AUTO) 0.1 % (0.0-2.0); EOSINOPHILS % (AUTO) 0.4 % (0.0-6.0); HEMATOCRIT 33 % (33-45); HEMOGLOBIN 10.6 g/dL (11.5-14.8); LYMPHOCYTES % (AUTO) 9.4 % (20.0-44.0); MEAN CORPUSCULAR HGB CONC 32 g/dl (31.0-36.0); MEAN CORPUSCULAR VOLUME 86 fL (82-100); MONOCYTES # (AUTO) 0.7 /CMM (0.1-1.30); MONOCYTES % (AUTO) 6.5 % (2.0-12.0); NEUTROPHILS # (AUTO) 8.9 /CMM (1.8-8.9); NEUTROPHILS % (AUTO) 83.6 % (43.0-81.0); PLATELET COUNT (AUTO) 278 /CMM (150-450); RED BLOOD CELL COUNT(AUTO) 3.82 MIL/uL (4.0-5.2); WHITE BLOOD COUNT (AUTO) 10.7 K/uL (4.3-11.0)
[2019-08-30 07:46] LABS: CALCIUM, SERUM 8.1 mg/dL (8.5-10.1); CARBON DIOXIDE 33 mmol/L (21-32); CHLORIDE 102 mmol/L (98-107); CREATININE 0.5 mg/dL (0.6-1.3); GLUCOSE 113 mg/dL (74-106); POTASSIUM 4.7 mmol/L (3.5-5.1); SODIUM SERUM 137 mmol/L (136-145); UREA NITROGEN, BLOOD 21 mg/dL (7-18)
[2019-08-30 08:00] VITALS: BP 124/64
[2019-08-30] MEDS: ASCORBIC ACID 500 MG TABLET PO SCH (08:54)
[2019-08-30] MEDS: FENOFIBRATE NANOCRYS (145 MG) 145 MG TABLET PO SCH (08:54)
[2019-08-30] MEDS: DEXAMETHASONE SOD PHOSPHATE 10 MG/ML VIAL IV SCH (08:54)
[2019-08-30] MEDS: OLANZAPINE 5 MG TABLET PO SCH (08:54)
[2019-08-30] MEDS: MULTIVITAMINS,THERAGRAN 1 UDTAB TABLET PO SCH (08:55)
[2019-08-30] MEDS: AMLODIPINE BESYLATE 2.5 MG TABLET PO SCH (08:55)
[2019-08-30] MEDS: ESCITALOPRAM OXALATE (10 MG) 10 MG TABLET PO SCH (08:55)
[2019-08-30] MEDS: FERROUS SULFATE (325 MG) 325 MG/TAB TABLET PO SCH (08:55)
[2019-08-30] MEDS: MUPIROCIN OINT 2% 22 GM TUBE SCH ×2 (09:39→21:22)
[2019-08-30] MEDS: Z GUARD REMEDY 2 OZ OINT TP SCH (09:39)
[2019-08-30] MEDS: PANTOPRAZOLE 40 MG VIAL IV SCH (09:39)
[2019-08-30] MEDS: APIXABAN 2.5 MG TABLET PO SCH ×2 (09:41→16:50)
[2019-08-30 12:00] VITALS: BP 124/64
[2019-08-30 16:00] VITALS: BP 98/63
[2019-08-30] MEDS: JEVITY 1.2 CAL 1,000 ML BOTTLE GT PRN (18:09)
--- NOTE | 2019-08-30 18:30 | NUR ---
RN CLOSING NOTES Patient remains in bed, with the same settings, tolerating well, no s/sx of distress, SOB noted. Arambula cath in place, [id number] ml, DAMIAN drain in place, dressings changed , comfort needs are met, safety measures implemented,bed in lowest position, call light within reach, will endorse to PM shift for COLIN
[2019-08-30 20:00] VITALS: BP 117/69
[2019-08-30] MEDS: ATORVASTATIN 10 MG TABLET PO SCH (21:21)
[2019-08-31 04:00] VITALS: BP 124/53
[2019-08-31 06:29] LABS: BASOPHILS % (AUTO) 0.1 % (0.0-2.0); EOSINOPHILS % (AUTO) 0.3 % (0.0-6.0); HEMATOCRIT 36 % (33-45); LYMPHOCYTES # (AUTO) 1.7 /CMM (0.8-4.8); LYMPHOCYTES % (AUTO) 12.3 % (20.0-44.0); MEAN CORPUSCULAR HGB CONC 31 g/dl (31.0-36.0); MEAN CORPUSCULAR VOLUME 86 fL (82-100); MONOCYTES % (AUTO) 7.2 % (2.0-12.0); NEUTROPHILS # (AUTO) 10.8 /CMM (1.8-8.9); NEUTROPHILS % (AUTO) 80.1 % (43.0-81.0); PLATELET COUNT (AUTO) 260 /CMM (150-450); RED BLOOD CELL COUNT(AUTO) 4.14 MIL/uL (4.0-5.2); WHITE BLOOD COUNT (AUTO) 13.5 K/uL (4.3-11.0)
--- NOTE | 2019-08-31 07:30 | NUR ---
RN OPENING NOTES PATIENT PRESENT AT BED , EYES IS OPEN, A/OX1, ON NV @ 2L OF O2, SATURATING 96% NO SOB, OR RESP DISTRESS NOTED, RECEIVING FEEDING VIA G-TUBE, JEVITY @ 40 CC/HR, INTACT, FLUSHED, TOLERATING WELL, IV MIDLINE ON BRANDON NOTED, INTACT AND PATENT, DAMIAN DRAIN ON L AKA NOTED, DRAINING RED BLOOD FROM AMPUTATION SITE, NO ODOR OR S/SX OF INFECTION NOTED, BLACKWELL CATH IN PLACE DRAINING YELLOW CLEAR URINE BY GRAVITY. SAFETY MEASURES IMPLEMENTED, CALL LIGHT IN REACH, BED IN LOWEST POSITION , WILL CONT TO MONITOR
[2019-08-31 07:47] LABS: PREALBUMIN 36.4 MG/DL (18.0-35.7)
[2019-08-31 08:00] VITALS: BP 129/67
--- NOTE | 2019-08-31 08:19 | NUR ---
WOUND CARE CONSULT/FOLLOW UP: REVIEWED CHART, NURSING DOCUMENTATION AND PHOTOS WHICH SHOW SACRAL DEEP TISSUE INJURY NOW IN EVOLUTION, PRESENT ON ADMISSION. RECOMMENDATIONS MADE FOR SKIN PROTECTION AND WOUND CARE. DISCUSSED WITH NURSING STAFF. PT IS ON HUNTER ISOFLEX LOW AIRLOSS BED. MD IN AGREEMENT WITH PLAN OF CARE. PT HAD RECENT ABOVE KNEE AMPUTATION FOLLOWED BY VASCULAR SURGEON.
[2019-08-31] MEDS: ESCITALOPRAM OXALATE (10 MG) 10 MG TABLET PO SCH (08:45)
[2019-08-31] MEDS: OLANZAPINE 5 MG TABLET PO SCH (08:46)
[2019-08-31] MEDS: FENOFIBRATE NANOCRYS (145 MG) 145 MG TABLET PO SCH (08:46)
[2019-08-31] MEDS: MULTIVITAMINS,THERAGRAN 1 UDTAB TABLET PO SCH (08:46)
[2019-08-31] MEDS: AMLODIPINE BESYLATE 2.5 MG TABLET PO SCH (08:46)
[2019-08-31] MEDS: ASCORBIC ACID 500 MG TABLET PO SCH (08:46)
[2019-08-31] MEDS: FERROUS SULFATE (325 MG) 325 MG/TAB TABLET PO SCH (08:46)
[2019-08-31] MEDS: DEXAMETHASONE SOD PHOSPHATE 10 MG/ML VIAL IV SCH (08:47)
[2019-08-31] MEDS: APIXABAN 2.5 MG TABLET PO SCH ×2 (08:48→17:57)
[2019-08-31] MEDS: PANTOPRAZOLE 40 MG VIAL IV SCH (08:49)
[2019-08-31] MEDS: MUPIROCIN OINT 2% 22 GM TUBE SCH ×2 (08:49→20:56)
[2019-08-31] MEDS: Z GUARD REMEDY 2 OZ OINT TP SCH (08:50)
[2019-08-31 09:07] LABS: ALBUMIN 1.7 g/dL (3.4-5.0); BILIRUBIN,TOTAL 0.4 mg/dL (0.2-1.0); CALCIUM, SERUM 8.5 mg/dL (8.5-10.1); CREATININE 0.6 mg/dL (0.6-1.3); POTASSIUM 4.8 mmol/L (3.5-5.1); TOTAL PROTEIN, SERUM 6.4 g/dL (6.4-8.2)
--- NOTE | 2019-08-31 11:00 | NUR ---
Sacral wound measurement done:Width:13 cm, Length: 10 cm
[2019-08-31 12:00] VITALS: BP 129/67
[2019-08-31 16:00] VITALS: BP 123/63
[2019-08-31] MEDS: JEVITY 1.2 CAL 1,000 ML BOTTLE GT PRN (19:30)
--- NOTE | 2019-08-31 19:30 | NUR ---
RN CLOSING NOTES Patient remains in bed, denies pain, tolerating settings well, wound dressings changed, G-Tube flushed well, all meds is given, comfort needs met, safety measures implemented, bed in lowest position, HOB elevated, will endorse to PM shift RN for COLIN
--- NOTE | 2019-08-31 19:30 | NUR ---
ms rn opening note received patient on isolation for covid. received in bed. a/ox1. on oxygen 3l/min via nasal cannula. respirations are even and unlabored. no s/s sob noted. no c/o pain at this. in no apparent distress. iv access in BRANDON midline patent and saline locked. bed is low and locked, hob elevated in semi fowlers, side rials up x2. call light within reach. gtube is preesent, aspirated, residual 80ml held feeding. epifanio drain located on left stump. will continue to monitor.
[2019-08-31 20:00] VITALS: BP 138/80
[2019-08-31] MEDS: ATORVASTATIN 10 MG TABLET PO SCH (21:01)
[2019-09-01] VITALS: BP 101/53
--- NOTE | 2019-09-01 03:00 | NUR ---
ms rn note checked patients gtube no residual noted. will continue feeding jevity 1.2 at 40ml/hr.
[2019-09-01 04:00] VITALS: BP 142/61
--- NOTE | 2019-09-01 06:34 | NUR ---
ms rn closing note on isolation for covid. in bed. a/ox1. oxygen remains at 3l/min via nasal cannula. respirations are even and unlabored. no sob noted. no c/o pain t/o shift. no distress. iv access maintained in BRANDON midline patent and saline locked. bed remains low and locked, hob elevated in semi fowlers, side rials up x2. call light within reach. gtube running jevity 1.2 @40ml/hr. barron catheter is maintained, draining to gravity. epifanio drain located on left AKA stump 10 cc output. will endorse to next shift
[2019-09-01 07:06] LABS: CALCIUM, SERUM 8.5 mg/dL (8.5-10.1); CREATININE 0.6 mg/dL (0.6-1.3); POTASSIUM 4.4 mmol/L (3.5-5.1)
--- NOTE | 2019-09-01 07:25 | NUR ---
RN OPENING NOTES RECEIVED KRISTEN HAYS BED SLEEPING. PATIENT IS A/O X 1, ON NC 3L , SATURATING 99%. NO DISTRESS NOTED, NO SOB. IV BRANDON MIDLINE, PATENT AND SL.SAFETY MEASURES IN PLACED , BED IN LOWEST POSITION AND LOCKED, SIDE RAILS UP X 2 , CALL LIGHT WITHIN REACH. WILL CONTINUE TO MONITOR.
[2019-09-01 08:00] VITALS: BP 103/83
[2019-09-01] MEDS: PANTOPRAZOLE 40 MG VIAL IV SCH (08:24)
[2019-09-01] MEDS: ESCITALOPRAM OXALATE (10 MG) 10 MG TABLET PO SCH (08:25)
[2019-09-01] MEDS: ASCORBIC ACID 500 MG TABLET PO SCH (08:25)
[2019-09-01] MEDS: MULTIVITAMINS,THERAGRAN 1 UDTAB TABLET PO SCH (08:25)
[2019-09-01] MEDS: FENOFIBRATE NANOCRYS (145 MG) 145 MG TABLET PO SCH (08:26)
[2019-09-01] MEDS: FERROUS SULFATE (325 MG) 325 MG/TAB TABLET PO SCH (08:26)
[2019-09-01] MEDS: OLANZAPINE 5 MG TABLET PO SCH (08:27)
[2019-09-01] MEDS: AMLODIPINE BESYLATE 2.5 MG TABLET PO SCH (08:28)
[2019-09-01] MEDS: APIXABAN 2.5 MG TABLET PO SCH ×2 (08:33→16:59)
[2019-09-01] MEDS: Z GUARD REMEDY 2 OZ OINT TP SCH (08:34)
[2019-09-01] MEDS: MUPIROCIN OINT 2% 22 GM TUBE SCH ×2 (09:01→21:32)
--- NOTE | 2019-09-01 15:40 | NUR ---
RN NOTES DAMIAN DRAIN REMOVED BY SURGEON .
[2019-09-01 16:00] VITALS: BP 117/69
--- NOTE | 2019-09-01 16:59 | NUR ---
RN NOTES Checked iHealthNetworksube running Promoltaity 1.2 @40ml/hr , residual @ 100cc , held feeding. will endorse to pm nurse.
--- NOTE | 2019-09-01 19:22 | NUR ---
RN CLOSING NOTES ENDORSED PT TO PM NURSE, PATIENT IS A/O X 1, ON NC 3L , SATURATING 99%. NO DISTRESS NOTED, NO SOB. IV BRANDON MIDLINE, PATENT AND SL.BLACKWELL CATH IN PLACE , YELLOW URINE. PATIENT GTUBE JEVITY @ 40 ML/HR, HELD FEEDING AT 1600 DUE TO 100ML RESIDUAL. PM NURSE AWARE. SAFETY MEASURES IN PLACED , BED IN LOWEST POSITION AND LOCKED, SIDE RAILS UP X 2 , CALL LIGHT WITHIN REACH. WILL CONTINUE TO MONITOR.
--- NOTE | 2019-09-01 19:50 | NUR ---
RN OPENING NOTES, PATIENT IN BED SLEEPING AT THIS TIME, NO SOB/ACUTE DISTRESS NOTED, ON NC 3L , SATURATING 99%, BRANDON MIDLINE, PATENT AND INTACT, BLACKWELL CATH IN PLACE , YELLOW URINE, PATENCY INTACT, GTUBE IN PLACED JEVITY @ 40 ML/HR, STARTED AT THSI TIME, NO RESIDUAL NOTED AT THIS TIME, SAFETY MEASURES IN PLACED , BED IN LOWEST POSITION AND LOCKED, SIDE RAILS UP X 2 , CALL LIGHT WITHIN REACH. WILL CONTINUE TO MONITOR CLOSELY.
[2019-09-01 20:00] VITALS: BP 110/67
[2019-09-01] MEDS: ATORVASTATIN 10 MG TABLET PO SCH (21:31)
--- NOTE | 2019-09-02 03:45 | NUR ---
0345 RECEIVED A CALL FROM LAB C/O CASSIDY, PATIENT COVID TEST RESULT IS NEGATIVE. WINCH DERRICK OPERATOR JEFFREY NOTIFIED.
[2019-09-02 04:00] VITALS: BP 103/64
--- NOTE | 2019-09-02 06:30 | NUR ---
RN CLOSING NOTES, PATIENT IN BED SLEEPING AT THIS TIME, NO SOB/ACUTE DISTRESS NOTED, ON NC 3L , SATURATING >99%, , GTUBE IN PLACED, CONT JEVITY @ 40 ML/HR, MINIMAL RESIDUAL NOTED AT THIS TIME, NO SIGNIFICANT CHANGE IN CONDITION DURING THE NIGHT, SAFETY MEASURES IN PLACED , BED LOCKED AND LOWEST POSITION, SIDE RAILS UP X 2 , CALL LIGHT WITHIN REACH. WILL ENDORSE CONTINUITY OF CARE TO ONCOMING NURSE.
[2019-09-02 06:50] LABS: CALCIUM, SERUM 8.3 mg/dL (8.5-10.1); CREATININE 0.6 mg/dL (0.6-1.3)
[2019-09-02 06:53] LABS: BASOPHILS % (AUTO) 0.2 % (0.0-2.0); EOSINOPHILS % (AUTO) 0.6 % (0.0-6.0); HEMATOCRIT 36 % (33-45); HEMOGLOBIN 11.4 g/dL (11.5-14.8); LYMPHOCYTES # (AUTO) 1.4 /CMM (0.8-4.8); LYMPHOCYTES % (AUTO) 10.1 % (20.0-44.0); MEAN CORPUSCULAR HGB CONC 32 g/dl (31.0-36.0); MEAN CORPUSCULAR VOLUME 87 fL (82-100); MONOCYTES # (AUTO) 0.8 /CMM (0.1-1.30); NEUTROPHILS # (AUTO) 11.7 /CMM (1.8-8.9); NEUTROPHILS % (AUTO) 83.1 % (43.0-81.0); PLATELET COUNT (AUTO) 216 /CMM (150-450); RED BLOOD CELL COUNT(AUTO) 4.12 MIL/uL (4.0-5.2)
--- NOTE | 2019-09-02 07:30 | NUR ---
RN OPENING NOTE Patient is resting in bed, A/o x1, showing no signs of acute distress or SOB, saturating 97% on 3L NC. BRANDON Midline is clean and intact, flushing well. g-tube has 0ml residual, flushed and patent running Jevity 1.2 @ 40mls/hour. Will turn and reposition every 2 hours. Bed is in lowest position, side rails x3 in upright position, fall safety and aspiration precautions enforced. Will continue with plan of care.
--- NOTE | 2019-09-02 07:36 | NUR ---
COVID NEGATIVE SECOND SWAB RESULT,RELAYED TO DR. ALVARADO NO NEW ORDER.AWAITS DISCHARGE TODAY PER CM.
[2019-09-02 08:00] VITALS: BP 119/76
[2019-09-02] MEDS: FENOFIBRATE NANOCRYS (145 MG) 145 MG TABLET PO SCH (08:48)
[2019-09-02] MEDS: MULTIVITAMINS,THERAGRAN 1 UDTAB TABLET PO SCH (08:48)
[2019-09-02] MEDS: ESCITALOPRAM OXALATE (10 MG) 10 MG TABLET PO SCH (08:48)
[2019-09-02] MEDS: ASCORBIC ACID 500 MG TABLET PO SCH (08:49)
[2019-09-02] MEDS: AMLODIPINE BESYLATE 2.5 MG TABLET PO SCH (08:49)
[2019-09-02] MEDS: OLANZAPINE 5 MG TABLET PO SCH (08:49)
[2019-09-02] MEDS: PANTOPRAZOLE 40 MG VIAL IV SCH (08:49)
[2019-09-02] MEDS: FERROUS SULFATE (325 MG) 325 MG/TAB TABLET PO SCH (08:49)
[2019-09-02] MEDS: APIXABAN 2.5 MG TABLET PO SCH ×2 (08:59→17:57)
[2019-09-02] MEDS: Z GUARD REMEDY 2 OZ OINT TP SCH (09:00)
[2019-09-02] MEDS: MUPIROCIN OINT 2% 22 GM TUBE SCH (09:00)
[2019-09-02 16:00] VITALS: BP 107/66
--- NOTE | 2019-09-02 18:29 | NUR ---
FOLLOWUP [facility] PER CM LATE,WILL CONTINUE TO FOLLOWUP.
--- NOTE | 2019-09-02 18:32 | NUR ---
BRAKE OPERATOR SHEET METAL NOTE Patient is medically cleared for discharge. Patient is A/O x1, talks to self, no signs of acute distress or SOB, saturating >95% on 3L NC. BRANDON midline noted --> will endorse to bookbinding machine operator RN to remove midline once EMS arrives. Skin assessed, photos taken and placed in chart. Wound care done as ordered. Patient unable to comprehend, so DC paperwork co-signed with another RN. All patient needs met, all due medications given, patient kept clean and dry throughout shift. Bed is in lowest position, side rails x3 in upright position, call light is within reach. fall safety and aspiration precautions enforced. Will endorse to bookbinding machine operator.
== END 2019-09-02 18:50 | DRG 853 ==
LOC: ER 18:34 → TELE1 19:38 → TELE-TD 20:46 → TELE1 08-18 08:47 → MEDSG1 08-28 13:10
PROVIDERS: ADMIT Internal Medicine; ATTEND Internal Medicine
PROC: 05HY33Z Insertion of Infusion Device into Upper Vein, Percutaneous Approach (ICD-10-PCS; 2019-08-18)
PROC: 0DH63UZ Insertion of Feeding Device into Stomach, Percutaneous Approach (ICD-10-PCS; principal; 2019-08-26)
PROC: 0Y6D0Z1 Detachment at Left Upper Leg, High, Open Approach (ICD-10-PCS; 2019-08-27)
DX: A41.89 Other specified sepsis (principal); G92 Toxic encephalopathy; I21.4 Non-ST elevation (NSTEMI) myocardial infarction; E43 Unspecified severe protein-calorie malnutrition; U07.1 COVID-19; J12.89 Other viral pneumonia; N17.0 Acute kidney failure with tubular necrosis; J96.91 Respiratory failure, unspecified with hypoxia; J15.9 Unspecified bacterial pneumonia; E87.0 Hyperosmolality and hypernatremia; N39.0 Urinary tract infection, site not specified; E87.1 Hypo-osmolality and hyponatremia; D68.9 Coagulation defect, unspecified; E87.2 Acidosis; J98.11 Atelectasis; L03.90 Cellulitis, unspecified; I70.262 Atherosclerosis of native arteries of extremities with gangrene, left leg; E86.0 Dehydration; F02.80 Dementia in other diseases classified elsewhere, unspecified severity, without behavioral disturbance, psychotic disturbance, mood disturbance, and anxiety; G30.9 Alzheimer's disease, unspecified; B96.20 Unspecified Escherichia coli [E. coli] as the cause of diseases classified elsewhere; I99.8 Other disorder of circulatory system; I12.9 Hypertensive chronic kidney disease with stage 1 through stage 4 chronic kidney disease, or unspecified chronic kidney disease; N18.9 Chronic kidney disease, unspecified; R13.10 Dysphagia, unspecified; Z66 Do not resuscitate; K29.70 Gastritis, unspecified, without bleeding; D64.9 Anemia, unspecified; E78.5 Hyperlipidemia, unspecified; E87.6 Hypokalemia; F41.9 Anxiety disorder, unspecified; I25.2 Old myocardial infarction; I25.10 Atherosclerotic heart disease of native coronary artery without angina pectoris; Z79.01 Long term (current) use of anticoagulants; E83.39 Other disorders of phosphorus metabolism; Z79.899 Other long term (current) drug therapy; E86.9 Volume depletion, unspecified; R91.1 Solitary pulmonary nodule; Z22.322 Carrier or suspected carrier of Methicillin resistant Staphylococcus aureus; Z96.649 Presence of unspecified artificial hip joint; T38.0X5A Adverse effect of glucocorticoids and synthetic analogues, initial encounter; Y92.9 Unspecified place or not applicable; Y95 Nosocomial condition
CPT/HCPCS: 36415; 43246; 71045-TC; 80048-TC; 80053-TC; 80076-TC; 80202-TC; 81000-TC; 82728-TC; 83605-TC; 83615-TC; 83735-TC; 83880; 84100-TC; 84134-TC; 84484-TC; 85025-TC; 85378-TC; 85730-TC; 86140-TC; 86850-TC; 87040-TC; 87081-TC; 87086-TC; 87186-TC; 88307-TC; 88311-TC; 92521; 92526; 92611-TC; 93307-TC; 93970-TC; 94760-TC; A4216; A6253; A6403; C9113; G0378; J0692; J1100; J1170; J1450; J1644; J1650; J1940; J2405; J2704; J3370; J3480; J3490; J7030; J7040; J7050; J7060; J7070; U0003-CS

== ENCOUNTER 2019-09-20 12:06 | Inpatient (IN) | payer MEDICARE, OTHER ==
[~2019-09-20] VITALS: Ht 152.4 cm; Wt 45.2 kg
[~2019-09-20 12:06] MED LIST: AMLO2.5T4 GT; ASCO500T21 GT; ATOR10TA GT; ESCI5TAB GT; FERR325T23 PO; MULT-754 PO; OLAN5TAB3 GT
[2019-09-20] MEDS ORDERED: APIX2.5T GT (12:29)
[2019-09-20] MEDS ORDERED: FERR300L GT (12:29)
[2019-09-20] MEDS ORDERED: LACT-209 GT (12:29)
[2019-09-20] MEDS ORDERED: MAGN400O6 GT (12:29)
[2019-09-20] MEDS ORDERED: PANT40SU2 GT (12:29)
[2019-09-20] MEDS ORDERED: COLL30OI TP (12:29)
[2019-09-20] MEDS ORDERED: MULT-439 GT (12:29)
[2019-09-20] MEDS ORDERED: ZINC1CAP2 GT (12:29)
[2019-09-20] MEDS ORDERED: ACET650S26 GT (12:29)
[2019-09-20] MEDS ORDERED: IV NS 0.9% 500 ML BAG IV ONE (12:30)
[2019-09-20] MEDS ORDERED: PIPERACILLIN /TAZOBACTAM 3.375 G in IV D5W 50 ML IV ONE (12:30)
[2019-09-20 12:40] LABS: BASOPHILS # (AUTO) 0.1 /CMM (0.0-0.2); BASOPHILS % (AUTO) 0.9 % (0.0-2.0); NEUTROPHILS # (AUTO) 11.1 /CMM (1.8-8.9); WHITE BLOOD COUNT (AUTO) 14.6 K/uL (4.3-11.0)
[2019-09-20 12:43] LABS: EOSINOPHILS % (AUTO) 0.8 % (0.0-6.0); HEMATOCRIT 27 % (33-45); HEMOGLOBIN 8.4 g/dL (11.5-14.8); LYMPHOCYTES # (AUTO) 1.6 /CMM (0.8-4.8); LYMPHOCYTES % (AUTO) 10.9 % (20.0-44.0); MEAN CORPUSCULAR HGB CONC 31 g/dl (31.0-36.0); MEAN CORPUSCULAR VOLUME 86 fL (82-100); MONOCYTES # (AUTO) 1.7 /CMM (0.1-1.30); MONOCYTES % (AUTO) 11.4 % (2.0-12.0); RED BLOOD CELL COUNT(AUTO) 3.12 MIL/uL (4.0-5.2)
[2019-09-20 12:47] LABS: PLATELET COUNT (AUTO) 943 /CMM (150-450)
[2019-09-20 12:49] LABS: CALCIUM, SERUM 8.6 mg/dL (8.5-10.1); CREATININE 0.6 mg/dL (0.6-1.3); POTASSIUM 4.3 mmol/L (3.5-5.1)
--- NOTE | 2019-09-20 12:52 | NUR ---
PETYE ALVARADO TO CELL# [phone]
--- NOTE | 2019-09-20 12:53 | NUR ---
MOVE SHEET SUBMITTED AND CALLED FOR A MS BED.
[2019-09-20 12:55] LABS: ALBUMIN 1.5 g/dL (3.4-5.0); BILIRUBIN,DIRECT 0.1 mg/dL (0.0-0.2); BILIRUBIN,TOTAL 0.3 mg/dL (0.2-1.0); TOTAL PROTEIN, SERUM 7.7 g/dL (6.4-8.2)
--- NOTE | 2019-09-20 13:00 | NUR ---
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 PT AAOX1, VSS. RR EVEN & UNLABORED. NO RESP DISTRESS. PT SEEN & EVAL' D BY DR. SONI. MEDICATED ORDERED, PT YULIANA WELL. PLACED ON PHOTONICS TECHNICIAN & WILL CONT TO MONITOR.
--- NOTE | 2019-09-20 13:49 | NUR ---
LAB CALLED COVID (-) NEG.
--- NOTE | 2019-09-20 13:51 | NUR ---
GOT BED 324-1
[2019-09-20] MEDS ORDERED: FEE PK DOSING 1 MIN EA MC ONE (14:59)
[2019-09-20] MEDS ORDERED: JEVITY 1.2 CAL 1,000 ML BOTTLE GT SCH ×2 (15:00→16:00)
[2019-09-20] MEDS ORDERED: MORPHINE SULFATE INJ 2 MG/ML DISP.SYRIN IV PRN (15:00)
[2019-09-20] MEDS ORDERED: ONDANSETRON HCL/PF 4 MG/2 ML VIAL IV PRN ×2 (15:00→16:00)
[2019-09-20] MEDS ORDERED: ACETAMINOPHEN 650 MG/20.3 ML UDC GT PRN ×2 (15:00→16:00)
[2019-09-20] MEDS ORDERED: HYDROCODONE/APAP 5/325MG 1 EACH TABLET PO PRN (15:00)
[2019-09-20] MEDS ORDERED: MAGNESIUM HYDROXIDE 30 ML UDC GT PRN ×2 (15:00→16:00)
[2019-09-20 15:02] LABS: APPEARANCE,URINE SL CLOUDY (CLEAR); BILIRUBIN,URINE NEGATIVE (NEGATIVE); BLOOD, URINE SMALL Ery/uL (NEGATIVE); COLOR,URINE YELLOW (YELLOW); KETONES,URINE NEGATIVE (NEGATIVE); LEUKOCYTE ESTERASE ,URINE MODERATE (NEGATIVE); NITRITE, URINE POSITIVE (NEGATIVE); PROTEIN,URINE 30 mg/dl (NEGATIVE); UGLUCOSE NEGATIVE (NEGATIVE)
[2019-09-20 15:11] LABS: BACTERIA,URINE 4+ /HPF (None Seen); COARSE GRANULAR CASTS,URINE Rare /LPF (None Seen); SQUAMOUS EPITHELIAL CELL,UR 0-2 /HPF (None Seen); WBC,URINE 21-50 /HPF (0-3)
--- NOTE | 2019-09-20 15:41 | NUR ---
REPORT GIVEN TO PRAVEENA CARREON FOR COLIN.
[2019-09-20] MEDS ORDERED: HYDROCODONE/APAP 5/325MG 1 EACH TABLET GT PRN (16:00)
--- NOTE | 2019-09-20 17:30 | NUR ---
MATERIALS RECYCLER NOTES RECEIVED PATIENT FROM ER ON MED/SURGE DX OF STAGE 4 SACRAL WOUND. PATIENT A/O X1 WITH CONFUSION,RESPONDING INTERNAL STIMULI. TOTAL CARE, LEFT LEG ABOVE THE KNEE AMPUTEE AND DRESSING INTACT. GT INTACT,KEEP HOB ELEVATED FOR ASPIRATION PRECAUTION, IV ACCESS ON RIGHT HAND INTACT. Dr ALVARADO AWARE OF NEW PATIENT AND MEDICATION. V/S TAKEN BP 103/78,P-112, R-20, O2-93 ROOM AIR, T-98.6, SKIN ASSESSMENT DONE PICTURE TAKEN. CALL LIGHT WITHIN TO REACH. CONTINUED MONITORING.
[2019-09-20 17:40] VITALS: BP 103/78
--- NOTE | 2019-09-20 17:51 | NUR ---
RN NOTES PATIENT GETTING US OF ABDOMEN AT THIS TIME.
[2019-09-20] MEDS ORDERED: PIPERACILLIN /TAZOBACTAM 3.375 G in IV D5W 50 ML IV SCH ×4 (18:00)
[2019-09-20] MEDS: VANCOMYCIN 0.75 GM in IV D5W 250 ML IV SCH (18:55)
--- NOTE | 2019-09-20 19:00 | NUR ---
RN NOTES INFUSING VANCOMYCIN 250 ML/HR ON RIGHT HAND INTACT, F/C DRAINING DARK YELLOW OUTPUT, SEEN PATIENT ID KAREEN STARCH FACTORY LABORER, ASSIST TURN AND REPOSTION Q 2 HR. CALL LIGHT WITHIN TO REACH. SAFETY . NOTIFIED CHARGE NURSE FOR JAVITY1.2 AT 50 ML/HR FEEDING TO FOLLOW UP.
--- NOTE | 2019-09-20 19:36 | NUR ---
MS RN OPENING NOTE: Received patient from morning nurse. Patient is awake and alert. Patient is in room air, breathing well. Patient is in no signs of distress, No SOB. Breathing equal and unlabored. Noted right hand IV access 20g. Flushes well, patent, no redness, or infiltration. Noted left AKA. Dressing is dry and intact. Noted sacral wound. Dressing dry and intact. Safety precaution in place, bed in the lowest level, brakes are locked, side rails x2 are up, alarm is on, and call light is within reach. Will continue care of plan and monitor.
[2019-09-20 20:00] VITALS: BP 105/72
[2019-09-20] MEDS: PIPERACILLIN /TAZOBACTAM 2.25 G in IV D5W 50 ML IV SCH (20:12)
[2019-09-20] MEDS ORDERED: JEVITY 1.2 CAL 1,000 ML BOTTLE GT PRN (21:00)
[2019-09-21] VITALS (8 sets, daily range): BP systolic 95–108; BP diastolic 54–72
--- NOTE | 2019-09-21 00:40 | NUR ---
MS RN NOTE: Floated to FRAN. Endorsed patient and gave report to Samina.
--- NOTE | 2019-09-21 00:52 | NUR ---
RN NOTES RECEIVED REPORT FROM NATALIE GRISSOM FOR COLIN. WILL CONTINUE TO MONITOR
[2019-09-21] MEDS: PIPERACILLIN /TAZOBACTAM 2.25 G in IV D5W 50 ML IV SCH ×3 (04:07→21:31)
[2019-09-21 06:39] LABS: CALCIUM, SERUM 8.4 mg/dL (8.5-10.1); CARBON DIOXIDE 27 mmol/L (21-32); CHLORIDE 107 mmol/L (98-107); CREATININE 0.5 mg/dL (0.6-1.3); GLUCOSE 128 mg/dL (74-106); POTASSIUM 4.1 mmol/L (3.5-5.1); SODIUM SERUM 140 mmol/L (136-145); UREA NITROGEN, BLOOD 24 mg/dL (7-18)
--- NOTE | 2019-09-21 07:04 | NUR ---
MS RN NOTES PATIENT IN BED, ASLEEP, ALERT AND ORIENTED X 3-4. BREATHING EVEN AND UNLABORED ON ROOM AIR. SHOWS NO SIGNS OF ACUTE RESPIRATORY DISTRESS, NO ACUTE PAIN. GTUBE RUNNING JEVITY 1.2 AT 60ML/HR. NO RESIDUALS. IV ON R HAND 20G ITS CLEAN DRY AND INTACT. SHOWS NO SIGNS OF INFILTRATION, NO REDNESS. SAFETY PRECAUTIONS IN PLACE. BED IN LOWEST POSITION, LOCKED, AND CALL LIGHT KEPT WITHIN REACH. WILL ENDORSE TO ONCOMING NURSE.
--- NOTE | 2019-09-21 07:40 | NUR ---
MS RN NOTES PATIENT RECEIVED IN BED RESTING COMFORTABLY, ALERT AND ORIENTED X 1. ON ROOM AIR WITH NO SIGNS OF RESPIRATORY DISTRESS WITH EVEN NON-LABORED BREATHING, AND NO SOB NOTED. PATIENT SKIN WARM AND DRY TO TOUCH. IV ACCESS INTACT AND PATENT. BLACKWELL CATHETER IN PLACE AND DRAINING BY GRAVITY. G-TUBE FEEDING IN PLACE AND INFUSING JEVITY 1.2 AT 60ml/hr. SAFETY PRECAUTIONS IMPLEMENTED WITH BED LOCKED, BED IN THE LOWEST POSITION, BILATERAL SIDE RAILS UP, BED ALARM ON AND CALL LIGHT WITHIN EASY REACH. WILL CONTINUE TO MONITOR PATIENT.
[2019-09-21] MEDS ORDERED: JEVITY 1.2 CAL 1,000 ML BOTTLE GT PRN (08:00)
--- NOTE | 2019-09-21 08:39 | NUR ---
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 DR MADDIE TEMPLE ON CASE TELEVISION CABINET FINISHER PER DR ALVARADO. RECOMMENDATIONS MADE FOR SKIN PROTECTION AND WOUND CARE. DISCUSSED WITH NURSING STAFF AND DR MADDIE TEMPLE, CURRENTLY ON CASE. PT IS ON HUNTER ISOFLEX LOW AIRLOSS BED. IN AGREEMENT WITH PLAN OF CARE. Addendum: 09/21/19 at 0842 by CHICA AMOR WNDNU Amended: Links added.
[2019-09-21] MEDS ORDERED: FERROUS SULFATE UDC 300 MG/5 ML UDC GT SCH (09:00)
[2019-09-21] MEDS ORDERED: Z GUARD REMEDY 2 OZ OINT TP PRN (09:00)
[2019-09-21] MEDS ORDERED: ZINC SULFATE 220 MG CAPSULE GT SCH (09:00)
[2019-09-21] MEDS ORDERED: ENOXAPARIN SODIUM 40 MG/0.4 ML DISP.SYRIN SQ SCH ×2 (09:00)
[2019-09-21] MEDS ORDERED: THERAHONEY GEL 1.5 OZ TUBE TP SCH (09:00)
[2019-09-21] MEDS ORDERED: PANTOPRAZOLE 40 MG/PACK PACK GT SCH (09:00)
[2019-09-21] MEDS ORDERED: MULTIVITAMIN LIQ 5 ML UDC GT SCH (09:00)
[2019-09-21] MEDS ORDERED: COLLAGENASE 30 GM TUBE TP SCH (09:00)
[2019-09-21] MEDS ORDERED: ASCORBIC ACID 500 MG TABLET GT SCH (09:00)
[2019-09-21] MEDS ORDERED: AMLODIPINE BESYLATE 2.5 MG TABLET GT SCH ×2 (09:00)
[2019-09-21] MEDS: ZINC SULFATE 220 MG CAPSULE GT SCH (09:11)
[2019-09-21] MEDS: ASCORBIC ACID 500 MG TABLET GT SCH (09:11)
[2019-09-21] MEDS: PANTOPRAZOLE 40 MG/PACK PACK GT SCH (09:11)
[2019-09-21] MEDS: MULTIVITAMINS,THERAGRAN 1 UDTAB TABLET GT SCH (09:12)
[2019-09-21] MEDS: FERROUS SULFATE UDC 300 MG/5 ML UDC GT SCH (09:12)
[2019-09-21] MEDS: ENOXAPARIN SODIUM 30 MG/0.3 ML DISP.SYRIN SQ SCH (09:13)
[2019-09-21] MEDS: Z GUARD REMEDY 2 OZ OINT TP SCH (10:47)
[2019-09-21] MEDS: DAKINS QUARTER STRENGTH (0.125%) 480 ML BOTTLE TOP SCH (10:47)
[2019-09-21] MEDS: VANCOMYCIN 0.75 GM in IV D5W 250 ML IV SCH (10:50)
[2019-09-21 11:59] LABS: BASOPHILS # (AUTO) 0.1 /CMM (0.0-0.2); BASOPHILS % (AUTO) 1.2 % (0.0-2.0); EOSINOPHILS % (AUTO) 0.8 % (0.0-6.0); HEMATOCRIT 24 % (33-45); HEMOGLOBIN 7.4 g/dL (11.5-14.8); LYMPHOCYTES # (AUTO) 1.1 /CMM (0.8-4.8); LYMPHOCYTES % (AUTO) 8.3 % (20.0-44.0); MEAN CORPUSCULAR HGB CONC 31 g/dl (31.0-36.0); MEAN CORPUSCULAR VOLUME 86 fL (82-100); MONOCYTES # (AUTO) 1.2 /CMM (0.1-1.30); MONOCYTES % (AUTO) 9.2 % (2.0-12.0); NEUTROPHILS # (AUTO) 10.3 /CMM (1.8-8.9); NEUTROPHILS % (AUTO) 80.5 % (43.0-81.0); PLATELET COUNT (AUTO) 854 /CMM (150-450); RED BLOOD CELL COUNT(AUTO) 2.79 MIL/uL (4.0-5.2); WHITE BLOOD COUNT (AUTO) 12.8 K/uL (4.3-11.0)
[2019-09-21] MEDS: ESCITALOPRAM OXALATE (10 MG) 10 MG TABLET GT SCH (12:20)
--- NOTE | 2019-09-21 13:50 | NUR ---
MS RN NOTES INFORMED DR. ALVARADO, ABOUT PATIENT'S HEMOGLOBIN 7.4 AND HEMATOCRIT 24, AND PLATELET 854 LEVELS, NO SIGNS OF ACTIVE BLEEDING. MD ORDERED 1 UNIT OF PACKED RBCS AND TYLENOL 650mg PRIOR BLOOD TRANSFUSION. WILL CARRY OUT ORDERS AND WILL CONTINUE TO MONITOR PATIENT.
--- NOTE | 2019-09-21 14:08 | NUR ---
MS RN NOTES CALLED PATIENT'S SON CINDY , INFORMED HIM ABOUT NEW ORDERS FROM DR. ALVARADO AND REQUESTING CONSENT. PATIENT'S SON AGREED, AND SECOND RN BRIE, WITNESS VERBAL CONSENT. CONSENT SIGNED AND IN PATIENT'S CHART.
--- NOTE | 2019-09-21 14:15 | NUR ---
MS RN NOTES CALLED DR. STALEY, , TO INFORM ABOUT PATIENT LEFT LEG AKA ABOUT EFREN STILL IN PLACE, AND TO FOLLOW UP WITH PLAN OF CARE AND POSSIBLE REMOVAL OF EFREN. WILL CONTINUE TO MONITOR PATIENT AT THIS TIME.
[2019-09-21 16:08] LABS: BAND % (MANUAL) 3 % (0.0-5.0); LYMPHOCYTES % (MANUAL) 5 % (16-48); MONOCYTES % (MANUAL) 6 % (0-11.0); NEUTROPHILS % (MANUAL) 86 (42-76)
[2019-09-21] MEDS: JEVITY 1.2 CAL 1,000 ML BOTTLE GT PRN (16:19)
--- NOTE | 2019-09-21 18:20 | NUR ---
MS RN NOTES PICKED UP BLOOD FROM LAB AT 1806, AND STARTED BLOOD TRANSFUSION AT 1820. WILL CONTINUE TO MONITOR PATIENT AND EDUCATED PATIENT TO REPORT ANY DISCOMFORT, CHILLS, BACK PAIN, OR SOB. WILL CONTINUE TO MONITOR PATIENT.
--- NOTE | 2019-09-21 19:30 | NUR ---
MS RN NOTES PATIENT IN BED CURRENTLY INFUSING BLOOD TRANSFUSION. VITAL SIGNS HAVE BEEN STABLE. PATIENT ALERT AND ORIENTED X 1. ON ROOM AIR WITH NO SIGNS RESPIRATORY DISTRESS, AND NO SOB NOTED. PATIENT SKIN DRY AND WARM TO TOUCH, IV ACCESS INTACT AND PATENT ON LEFT AC 20 GAUGE. PATIENT PRESENTS WITH NO PAIN OR DISCOMFORT. BLACKWELL CATHETER IN PLACE DRAINING BY GRAVITY. G-TUBE FEEDING IN PLACE, INFUSING 60ml/hr, NO RESIDUAL NOTED. SACRAL WOUND DRESSING INTACT AND PATENT, WITH MALODOROUS PRESENT. SAFETY PRECAUTIONS IMPLEMENTED WITH BED LOCKED, BED IN THE LOWEST POSITION, BILATERAL SIDE RAILS UP, BED ALARM ON, AND CALL LIGHT WITHIN EASY REACH OF PATIENT. WILL ENDORSE PLAN OF CARE TO UPCOMING ULTRASONIC SEAMING MACHINE OPERATOR NURSE.
--- NOTE | 2019-09-21 19:45 | NUR ---
MS RN OPENING NOTES PATIENT RECEIVED RESTING IN BED COMFORTABLY; A/OX1; BREATHING EVEN AND UNLABORED; TOLERATING ROOM AIR WELL; NO SOB NOTED; L AC # 20 CURRENTLY INFUSING 1 UNIT OF PRBC; PER DAY SHIFT, INFUSION STARTED AT 1821; VITALS STABLE; NO REACTIONS NOTED; WILL CONT TO MONITOR; GTUBE IN PLACE, INFUSING JEVITY 1.2 @ 60ML/HR, TOLERATING GTUBE FEEDING WITH LOW RESIDUALS; BLACKWELL CATH IN PLACE, WITH YELLOW OUTPUT; SAFETY PRECAUTIONS IMPLEMENTED; BED LOCKED IN LOW POSITION; SIDE RAILSX2; WILL CONT TO MONITOR
[2019-09-22] MEDS: PIPERACILLIN /TAZOBACTAM 2.25 G in IV D5W 50 ML IV SCH ×2 (04:00→12:13)
[2019-09-22 04:41] VITALS: BP 106/60
--- NOTE | 2019-09-22 05:12 | NUR ---
MS RN NOTES UNABLE TO GIVE VANCO AT THIS TIME, AWAITING VANCO TROUGH;
--- NOTE | 2019-09-22 06:45 | NUR ---
MS RN CLOSING NOTES PATIENT RESTING IN BED COMFORTABLY; A/OX1, VERBAL; PATIENT ABLE TO RESPOND TO QUESTIONS AT THIS TIME; BREATHING EVEN AND UNLABORED; NO SOB NOTED; PATIENT TOLERATING ROOM AIR WELL; NO DISTRESS NOTED; L FA # 20 SL INTACT AND PATENT, FLUSHING WELL; NO S/S OF REDNESS OR INFILTRATION NOTED; STILL AWAITING VANCO TROUGH, RESULTS PENDING; WILL ENDORSE TO MORNING SHIFT; CHARGE NURSE AWARE; GTUBE IN PLACE, PATIENT TOLERATING GTUBE FEEDING WITH LOW RESIDUALS; BLACKWELL IN PLACE WITH YELLOW OUTPUT; ALL NEEDS RENDERED; SAFETY PRECAUTIONS IMPLEMENTED; BED LOCKED IN LOW POSITION; SIDE RAILSX2; WILL ENDORSE COLIN TO ONCOMING SHIFT
[2019-09-22 06:55] LABS: BASOPHILS # (AUTO) 0.1 /CMM (0.0-0.2); BASOPHILS % (AUTO) 0.8 % (0.0-2.0); HEMATOCRIT 30 % (33-45); HEMOGLOBIN 9.3 g/dL (11.5-14.8); LYMPHOCYTES # (AUTO) 1.5 /CMM (0.8-4.8); LYMPHOCYTES % (AUTO) 10.3 % (20.0-44.0); MEAN CORPUSCULAR HGB CONC 32 g/dl (31.0-36.0); MEAN CORPUSCULAR VOLUME 85 fL (82-100); MONOCYTES # (AUTO) 1.2 /CMM (0.1-1.30); MONOCYTES % (AUTO) 8.7 % (2.0-12.0); NEUTROPHILS # (AUTO) 11.2 /CMM (1.8-8.9); NEUTROPHILS % (AUTO) 79.2 % (43.0-81.0); PLATELET COUNT (AUTO) 824 /CMM (150-450); RED BLOOD CELL COUNT(AUTO) 3.48 MIL/uL (4.0-5.2); WHITE BLOOD COUNT (AUTO) 14.2 K/uL (4.3-11.0)
[2019-09-22 07:19] LABS: ALANINE AMINOTRANSFERASE 301 U/L (12-78); ALKALINE PHOSPHATASE 309 U/L (46-116); ASPARTATE AMINOTRANSFERASE 112 U/L (15-37); BILIRUBIN,DIRECT 0.2 mg/dL (0.0-0.2); BILIRUBIN,TOTAL 0.4 mg/dL (0.2-1.0); CALCIUM, SERUM 8.3 mg/dL (8.5-10.1); CARBON DIOXIDE 28 mmol/L (21-32); CHLORIDE 104 mmol/L (98-107); CREATININE 0.4 mg/dL (0.6-1.3); GLUCOSE 106 mg/dL (74-106); POTASSIUM 4.1 mmol/L (3.5-5.1); SODIUM SERUM 137 mmol/L (136-145); TOTAL PROTEIN, SERUM 7.2 g/dL (6.4-8.2); UREA NITROGEN, BLOOD 23 mg/dL (7-18)
[2019-09-22 07:20] LABS: ALBUMIN 1.4 g/dL (3.4-5.0)
[2019-09-22] MEDS: VANCOMYCIN 0.75 GM in IV D5W 250 ML IV SCH (07:44)
[2019-09-22] MEDS: MORPHINE SULFATE INJ 2 MG/ML DISP.SYRIN IV PRN (07:56)
[2019-09-22 08:00] VITALS: BP 112/62
--- NOTE | 2019-09-22 08:00 | NUR ---
RN OPENING NOTES RECEIVED PT RESTING IN BED COMFORTABLY; A/OX1, VERBAL; PATIENT ABLE TO RESPOND TO QUESTIONS AT THIS TIME; NO CARDIAC OR RESP DISTRESS NOTED. NO SOB NOTED. SATURATING WELL ON ROOM AIR. BREATHING EVEN AND UNLABORED; IV ACCESS NOTED ON L FA # 20 SL INTACT AND PATENT, FLUSHING WELL; NO S/S OF REDNESS OR INFILTRATION NOTED; GTUBE IN PLACE, PATIENT TOLERATING GTUBE FEEDING WITH NO GASTRIC RESIDUAL NOTED. FEEDING IS JEVITY 1.2 @ 60ML/HR. ; BLACKWELL IN PLACE WITH YELLOW OUTPUT; SAFETY PRECAUTIONS IMPLEMENTED; BED LOCKED IN LOW POSITION; SIDE RAILSX2; BED ALARM ON. WILL CONT TO MONITOR.
[2019-09-22] MEDS: ENOXAPARIN SODIUM 30 MG/0.3 ML DISP.SYRIN SQ SCH (08:38)
[2019-09-22] MEDS: FERROUS SULFATE UDC 300 MG/5 ML UDC GT SCH (08:38)
[2019-09-22] MEDS: PANTOPRAZOLE 40 MG/PACK PACK GT SCH (08:38)
[2019-09-22] MEDS: MULTIVITAMINS,THERAGRAN 1 UDTAB TABLET GT SCH (08:38)
[2019-09-22] MEDS: ASCORBIC ACID 500 MG TABLET GT SCH (08:38)
[2019-09-22] MEDS: ESCITALOPRAM OXALATE (10 MG) 10 MG TABLET GT SCH (08:39)
[2019-09-22] MEDS: ZINC SULFATE 220 MG CAPSULE GT SCH (08:39)
[2019-09-22] MEDS: Z GUARD REMEDY 2 OZ OINT TP SCH (08:40)
[2019-09-22] MEDS: DAKINS QUARTER STRENGTH (0.125%) 480 ML BOTTLE TOP SCH (08:40)
[2019-09-22] MEDS ORDERED: MULTIVITAMINS,THERAGRAN 1 UDTAB TABLET GT SCH (09:00)
[2019-09-22] MEDS: CEFEPIME 1 GM in IV D5W 50 ML IV SCH ×2 (15:21→22:05)
[2019-09-22 16:00] VITALS: BP 117/58
[2019-09-22] MEDS: VANCOMYCIN 500 MG in IV D5W 100 ML IV SCH (17:24)
--- NOTE | 2019-09-22 20:00 | NUR ---
MS/RN OPENING NOTE Patient awake in bed, A/O x1. Breathing even, clear, unlabored, No Signs of acute distress or SOB. On room air, O2 sat 96%. IV site LFA 20g, saline lock. IV patent and intact. Skin warm, pink, dry, appropriate for ethnicity. 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 Wound dressing clean, dry, intact. Minimal serosanguineous drainage noted. GTF jevity 1.2 @ 60 ml/hr, patient tolerating well. No residuals. Arambula catheter in place; draining clear, yellow urine. Bed in low position, wheels locked, side rails up x2, call light within reach.
[2019-09-22 20:24] VITALS: BP 103/58
[2019-09-22 20:53] VITALS: BP 103/58
[2019-09-23] MEDS: VANCOMYCIN 500 MG in IV D5W 100 ML IV SCH ×2 (04:00→17:22)
--- NOTE | 2019-09-23 06:30 | NUR ---
MS/RN CLOSING NOTE Patient awake in bed, A/O x1. Breathing even, clear, unlabored. No signs of acute distress or SOB, on room air. IV site LFA 20g, saline lock. IV patent and intact. Skin warm, pink, dry, appropriate for ethnicity. Wound dressing changed on sacral region. Minimal serosanguineous drainage noted. Patient tolerated well. GTF jevity 1.2 @ 60 ml/hr, patient tolerating well. No residuals. Arambula catheter in place; draining clear, yellow urine, 1200 ml. Bed in low position, wheels locked, side rails up x2, call light within reach.
[2019-09-23 07:11] LABS: BASOPHILS # (AUTO) 0.1 /CMM (0.0-0.2); BASOPHILS % (AUTO) 0.9 % (0.0-2.0); EOSINOPHILS % (AUTO) 0.8 % (0.0-6.0); HEMATOCRIT 31 % (33-45); HEMOGLOBIN 9.7 g/dL (11.5-14.8); LYMPHOCYTES # (AUTO) 1.2 /CMM (0.8-4.8); LYMPHOCYTES % (AUTO) 8.6 % (20.0-44.0); MEAN CORPUSCULAR HGB CONC 32 g/dl (31.0-36.0); MEAN CORPUSCULAR VOLUME 84 fL (82-100); MONOCYTES # (AUTO) 1.1 /CMM (0.1-1.30); MONOCYTES % (AUTO) 8.2 % (2.0-12.0); NEUTROPHILS # (AUTO) 11.1 /CMM (1.8-8.9); NEUTROPHILS % (AUTO) 81.5 % (43.0-81.0); PLATELET COUNT (AUTO) 850 /CMM (150-450); RED BLOOD CELL COUNT(AUTO) 3.63 MIL/uL (4.0-5.2); WHITE BLOOD COUNT (AUTO) 13.7 K/uL (4.3-11.0)
[2019-09-23 07:18] LABS: CALCIUM, SERUM 8.4 mg/dL (8.5-10.1); CARBON DIOXIDE 28 mmol/L (21-32); CHLORIDE 104 mmol/L (98-107); CREATININE 0.4 mg/dL (0.6-1.3); GLUCOSE 115 mg/dL (74-106); POTASSIUM 3.7 mmol/L (3.5-5.1); SODIUM SERUM 137 mmol/L (136-145); UREA NITROGEN, BLOOD 16 mg/dL (7-18)
--- NOTE | 2019-09-23 07:48 | NUR ---
RN MS OPENING NOTES PATIENT IS IN BED SLEEPING. WITH NO SIGNS OF DISTRESS AND NO SOB IN ROOM AIR. IV L FA 20#G INTACT SL. NO COMPLAINT OF DISCOMFORT AND NO PAIN AT THIS MOMENT. G -TUBE INTACT FEEDING JEVITY 1.2 AT 60 ML/HR. BLACKWELL CATHETER INTACT. SAFETY MEASURES ARE APPLIED BED IS IN LOW POSITION, SIDE RAILS UP X 2 FOR SAFETY. CALL LIGHT WITHIN REACH. WILL CONTINUE TO MONITOR
[2019-09-23 07:49] LABS: BILIRUBIN,DIRECT 0.2 mg/dL (0.0-0.2); BILIRUBIN,TOTAL 0.3 mg/dL (0.2-1.0); TOTAL PROTEIN, SERUM 6.7 g/dL (6.4-8.2)
[2019-09-23 07:58] LABS: ALBUMIN 1.3 g/dL (3.4-5.0)
[2019-09-23 08:00] VITALS: BP 110/54
[2019-09-23] MEDS: ESCITALOPRAM OXALATE (10 MG) 10 MG TABLET GT SCH (08:14)
[2019-09-23] MEDS: ZINC SULFATE 220 MG CAPSULE GT SCH (08:14)
[2019-09-23] MEDS: FERROUS SULFATE UDC 300 MG/5 ML UDC GT SCH (08:14)
[2019-09-23] MEDS: ASCORBIC ACID 500 MG TABLET GT SCH (08:14)
[2019-09-23] MEDS: PANTOPRAZOLE 40 MG/PACK PACK GT SCH (08:14)
[2019-09-23] MEDS: MULTIVITAMINS,THERAGRAN 1 UDTAB TABLET GT SCH (08:14)
[2019-09-23] MEDS: Z GUARD REMEDY 2 OZ OINT TP SCH (08:15)
[2019-09-23] MEDS: DAKINS QUARTER STRENGTH (0.125%) 480 ML BOTTLE TOP SCH (08:15)
[2019-09-23] MEDS: ENOXAPARIN SODIUM 30 MG/0.3 ML DISP.SYRIN SQ SCH (08:17)
[2019-09-23] MEDS: CEFEPIME 1 GM in IV D5W 50 ML IV SCH ×2 (09:35→20:26)
[2019-09-23] MEDS ORDERED: LIDOCAINE 2%-EPI 1:100,000 30 ML VIAL TP STA (12:25)
[2019-09-23] MEDS ORDERED: SILVER NITRATE APPLICATOR 1 EA BOX TP STA (12:25)
--- NOTE | 2019-09-23 14:49 | NUR ---
SPECIMEN OF POST DEBRIDEMENT BONE, ORDERED BY SUZANNE DIXON NP WAS COLLECTED AND SENT TO PATHOLOGY PER ORDERED.
[2019-09-23 16:15] VITALS: BP 124/63
--- NOTE | 2019-09-23 19:30 | NUR ---
MS RN CLOSING NOTES PATIENT IS A/O X 1. WITH NO SIGNS OF DISTRESS AND NO SOB IN ROOM AIR. IV L FA 20#G INTACT SL. NO COMPLAINT OF DISCOMFORT AND NO PAIN AT THIS MOMENT. G -TUBE INTACT FEEDING JEVITY 1.2 AT 60 ML/HR. REMAINED STABLE THROUGH OUT SHIFT. PATIENT KEPT CLEAN AND DRY. ALL NEEDS, CARE TREATMENT AND MEDICATIONS ADMINISTERED ANTICIPATED PER ORDER. BLACKWELL CATHETER ORDER WAS ENDORSE TO THE ELECTRONICS WARFARE TECHNICIAN NURSE AFTER MANY TIMES OF ATTEMPT. SAFETY MEASURES ARE APPLIED, BED IS IN LOW POSITION WITH SIDE RAILS UP X 2 FOR SAFETY. CALL LIGHT IS WITHIN REACH. WILL ENDORSE TO THE ELECTRONICS WARFARE TECHNICIAN NURSE.
--- NOTE | 2019-09-23 19:43 | NUR ---
MS RN NOTES PATIENT IN BED, AWAKE, ALERT AND ORIENTED X 1. BREATHING EVEN AND UNLABORED ON ROOM AIR. SHOWS NO SIGNS OF ACUTE RESPIRATORY DISTRESS, NO ACUTE PAIN. BLACKWELL CATHETER INTACT AND IN PLACE. FLOWING URINE. GTUBE JEVITY 1.2 AT 60ML/HR. SHOWS NO RESIDUALS. IV ON FA 20G SL. ITS CLEAN DRY AND INTACT. SHOWS NO SIGNS OF INFILTRATION, NO REDNESS. SAFETY PRECAUTIONS IN PLACE. BED IN LOWEST POSITION, LOCKED, AND CALL LIGHT KEPT WITHIN REACH. WILL CONTINUE TO MONITOR.
[2019-09-23 20:00] VITALS: BP 102/72
[2019-09-24] MEDS: VANCOMYCIN 500 MG in IV D5W 100 ML IV SCH (04:29)
[2019-09-24] MEDS: JEVITY 1.2 CAL 1,000 ML BOTTLE GT PRN (04:34)
--- NOTE | 2019-09-24 06:38 | NUR ---
MS RN NOTES PATIENT IN BED, ASLEEP, ALERT AND ORIENTED X 1. BREATHING EVEN AND UNLABORED ON ROOM AIR. SHOWS NO SIGNS OF ACUTE RESPIRATORY DISTRESS, NO ACUTE PAIN. BLACKWELL CATHETER INTACT AND IN PLACE. FLOWING CLOUDY YELLOW URINE. GTUBE JEVITY 1.2 AT 60ML/HR. SHOWS NO RESIDUALS. IV ON FA 20G SL. ITS CLEAN DRY AND INTACT. SHOWS NO SIGNS OF INFILTRATION, NO REDNESS. ALL DUE MEDICATIONS GIVEN. SAFETY PRECAUTIONS IN PLACE. BED IN LOWEST POSITION, LOCKED, AND CALL LIGHT KEPT WITHIN REACH. WILL ENDORSE TO ONCOMING NURSE.
--- NOTE | 2019-09-24 07:31 | NUR ---
RN MS OPENING NOTES PATIENT IS IN BED SLEEPING. WITH NO SIGNS OF DISTRESS AND NO SOB IN ROOM AIR. IV L FA 20#G INTACT SL. NO COMPLAINT OF DISCOMFORT AND NO PAIN AT THIS MOMENT. G -TUBE INTACT FEEDING JEVITY 1.2 AT 60 ML/HR. BLACKWELL CATHETER INTACT. ON A LOSS AIR MATTRESS. SAFETY MEASURES ARE APPLIED BED IS IN LOW POSITION, SIDE RAILS UP X 2 FOR SAFETY. CALL LIGHT WITHIN REACH. WILL CONTINUE TO MONITOR.
[2019-09-24 08:00] VITALS: BP 130/85
[2019-09-24] MEDS: FERROUS SULFATE UDC 300 MG/5 ML UDC GT SCH (08:18)
[2019-09-24] MEDS: ESCITALOPRAM OXALATE (10 MG) 10 MG TABLET GT SCH (08:19)
[2019-09-24] MEDS: ZINC SULFATE 220 MG CAPSULE GT SCH (08:19)
[2019-09-24] MEDS: ASCORBIC ACID 500 MG TABLET GT SCH (08:19)
[2019-09-24] MEDS: PANTOPRAZOLE 40 MG/PACK PACK GT SCH (08:19)
[2019-09-24] MEDS: MULTIVITAMINS,THERAGRAN 1 UDTAB TABLET GT SCH (08:19)
[2019-09-24] MEDS: Z GUARD REMEDY 2 OZ OINT TP SCH (08:20)
[2019-09-24] MEDS: DAKINS QUARTER STRENGTH (0.125%) 480 ML BOTTLE TOP SCH (08:20)
[2019-09-24 08:25] LABS: BASOPHILS # (AUTO) 0.1 /CMM (0.0-0.2); BASOPHILS % (AUTO) 0.9 % (0.0-2.0); EOSINOPHILS % (AUTO) 1.2 % (0.0-6.0); HEMATOCRIT 33 % (33-45); HEMOGLOBIN 10.2 g/dL (11.5-14.8); LYMPHOCYTES # (AUTO) 1.1 /CMM (0.8-4.8); LYMPHOCYTES % (AUTO) 7.2 % (20.0-44.0); MEAN CORPUSCULAR HGB CONC 31 g/dl (31.0-36.0); MEAN CORPUSCULAR VOLUME 86 fL (82-100); MONOCYTES # (AUTO) 1.3 /CMM (0.1-1.30); MONOCYTES % (AUTO) 8.6 % (2.0-12.0); NEUTROPHILS # (AUTO) 12.8 /CMM (1.8-8.9); NEUTROPHILS % (AUTO) 82.1 % (43.0-81.0); PLATELET COUNT (AUTO) 844 /CMM (150-450); RED BLOOD CELL COUNT(AUTO) 3.83 MIL/uL (4.0-5.2); WHITE BLOOD COUNT (AUTO) 15.6 K/uL (4.3-11.0)
[2019-09-24 08:42] LABS: CALCIUM, SERUM 8.4 mg/dL (8.5-10.1); CREATININE 0.6 mg/dL (0.6-1.3); POTASSIUM 3.9 mmol/L (3.5-5.1)
[2019-09-24] MEDS: ENOXAPARIN SODIUM 30 MG/0.3 ML DISP.SYRIN SQ SCH (08:42)
[2019-09-24] MEDS: CEFEPIME 1 GM in IV D5W 50 ML IV SCH (09:47)
[2019-09-24 16:00] VITALS: BP 104/58
[2019-09-24] MEDS: LINEZOLID RTU BAG 600 MG in PREMIX 1 EA IV SCH (17:20)
--- NOTE | 2019-09-24 18:57 | NUR ---
MS RN CLOSING NOTE PATIENT IS A/O X 1. WITH NO SIGNS OF DISTRESS AND NO SOB IN ROOM AIR. IV L FA 20#G INTACT SL. NO COMPLAINT OF DISCOMFORT AND NO PAIN AT THIS MOMENT. G -TUBE INTACT FEEDING JEVITY 1.2 AT 60 ML/HR. BLACKWELL CATHETER INTACT. ON A LOSS AIR MATTRESS. PATIENT REMAINED STABLE THROUGH OUT SHIFT. PATIENT KEPT CLEAN AND DRY. ALL NEEDS, CARE, TREATMENT AND MEDICATIONS ADMINISTERED ANTICIPATED PER ORDER. SAFETY MEASURES ARE APPLIED BED IS IN LOW POSITION, SIDE RAILS UP X 2 FOR SAFETY. CALL LIGHT WITHIN REACH. WILL ENDORSE TO THE NEXT RADIOLOGY TEACHER.
--- NOTE | 2019-09-24 19:44 | NUR ---
MS RN NOTES PATIENT IN BED, AWAKE, ALERT AND ORIENTED X 1. BREATHING EVEN AND UNLABORED ON ROOM AIR. SHOWS NO SIGNS OF ACUTE RESPIRATORY DISTRESS, NO ACUTE PAIN. BLACKWELL CATHETER INTACT AND IN PLACE. FLOWING YELLOW CLOUDY URINE. GTUBE JEVITY 1.2 AT 60ML/HR. SHOWS NO RESIDUALS. IV ON FA 20G SL. ITS CLEAN DRY AND INTACT. SHOWS NO SIGNS OF INFILTRATION, NO REDNESS. SAFETY PRECAUTIONS IN PLACE. BED IN LOWEST POSITION, LOCKED, AND CALL LIGHT KEPT WITHIN REACH. WILL CONTINUE TO MONITOR.
[2019-09-24 20:00] VITALS: BP 117/66
[2019-09-24] MEDS ORDERED: CEFTRIAXONE 1 G VIAL IM SCH (20:00)
[2019-09-24 20:40] VITALS: BP 117/66
[2019-09-24] MEDS: CEFTRIAXONE 1 G in IV D5W 50 ML IV SCH (20:53)
[2019-09-25] MEDS: JEVITY 1.2 CAL 1,000 ML BOTTLE GT PRN (00:51)
[2019-09-25] MEDS: LINEZOLID RTU BAG 600 MG in PREMIX 1 EA IV SCH ×2 (04:47→17:21)
--- NOTE | 2019-09-25 06:53 | NUR ---
MS RN NOTES PATIENT IN BED, ASLEEP, ALERT AND ORIENTED X 1. BREATHING EVEN AND UNLABORED ON ROOM AIR. SHOWS NO SIGNS OF ACUTE RESPIRATORY DISTRESS, NO ACUTE PAIN. BLACKWELL CATHETER INTACT AND IN PLACE. FLOWING YELLOW CLOUDY URINE. GTUBE JEVITY 1.2 AT 60ML/HR. SHOWS NO RESIDUALS. IV ON FA 20G SL. ITS CLEAN DRY AND INTACT. SHOWS NO SIGNS OF INFILTRATION, NO REDNESS. ALL DUE MEDICATIONS GIVEN. SAFETY PRECAUTIONS IN PLACE. BED IN LOWEST POSITION, LOCKED, AND CALL LIGHT KEPT WITHIN REACH. WILL ENDORSE TO ONCOMING NURSE.
[2019-09-25 07:05] LABS: BASOPHILS # (AUTO) 0.1 /CMM (0.0-0.2); BASOPHILS % (AUTO) 1.1 % (0.0-2.0); EOSINOPHILS % (AUTO) 1.5 % (0.0-6.0); HEMATOCRIT 30 % (33-45); HEMOGLOBIN 9.6 g/dL (11.5-14.8); LYMPHOCYTES # (AUTO) 1.1 /CMM (0.8-4.8); LYMPHOCYTES % (AUTO) 10.6 % (20.0-44.0); MEAN CORPUSCULAR HGB CONC 32 g/dl (31.0-36.0); MEAN CORPUSCULAR VOLUME 85 fL (82-100); MONOCYTES # (AUTO) 0.9 /CMM (0.1-1.30); MONOCYTES % (AUTO) 8.5 % (2.0-12.0); NEUTROPHILS # (AUTO) 8.3 /CMM (1.8-8.9); NEUTROPHILS % (AUTO) 78.3 % (43.0-81.0); PLATELET COUNT (AUTO) 764 /CMM (150-450); RED BLOOD CELL COUNT(AUTO) 3.55 MIL/uL (4.0-5.2); WHITE BLOOD COUNT (AUTO) 10.5 K/uL (4.3-11.0)
--- NOTE | 2019-09-25 07:15 | NUR ---
MS RN NOTES PATIENT IN BED ALERT ORIENTED X 1. NO ACUTE DISTRESS NOTED. BREATHING UNLABORED. NO SOB NOTED. GT PATENT AND INTACT RUNNING ORDERED FEEDING AND SETTING. BLACKWELL CATHETER PATENT AND INTACT DRAINING CLEAR YELLOW URINE. IV ACCESS PATENT AND INTACT, NO REDNESS, NO SWELLING NOTED. SAFETY MEASURES IN PLACE. CALL LIGHT WITHIN REACH. WILL CONTINUE TO MONITOR ACCORDINGLY.
[2019-09-25 07:17] LABS: CALCIUM, SERUM 8.1 mg/dL (8.5-10.1); CREATININE 0.6 mg/dL (0.6-1.3); POTASSIUM 4.3 mmol/L (3.5-5.1)
[2019-09-25 08:32] VITALS: BP 121/72
[2019-09-25 08:51] LABS: BAND % (MANUAL) 1 % (0.0-5.0); LYMPHOCYTES % (MANUAL) 9 % (16-48); MONOCYTES % (MANUAL) 10 % (0-11.0); NEUTROPHILS % (MANUAL) 79 (42-76)
[2019-09-25] MEDS: ASCORBIC ACID 500 MG TABLET GT SCH (09:02)
[2019-09-25] MEDS: PANTOPRAZOLE 40 MG/PACK PACK GT SCH (09:02)
[2019-09-25] MEDS: FERROUS SULFATE UDC 300 MG/5 ML UDC GT SCH (09:02)
[2019-09-25] MEDS: MULTIVITAMINS,THERAGRAN 1 UDTAB TABLET GT SCH (09:02)
[2019-09-25] MEDS: ZINC SULFATE 220 MG CAPSULE GT SCH (09:02)
[2019-09-25] MEDS: DAKINS QUARTER STRENGTH (0.125%) 480 ML BOTTLE TOP SCH (09:09)
[2019-09-25] MEDS: Z GUARD REMEDY 2 OZ OINT TP SCH (09:10)
[2019-09-25] MEDS: MORPHINE SULFATE INJ 2 MG/ML DISP.SYRIN IV PRN (11:47)
--- NOTE | 2019-09-25 11:47 | NUR ---
MS RN NOTES SEEN AND EVALUATED BY SUZANNE DIXON ELECTRON GUN ASSEMBLER, DEBRIDEMENT OF SACRAL WOUND DONE AT BED SIDE, VITAL SIGNS STABLE , WITHIN NORMAL LIMITS.
--- NOTE | 2019-09-25 11:48 | NUR ---
RN NOTES MORPHINE IV 2MG GIVEN ORDERED FOR PAIN PATIENT OBSERVED FACIAL GRIMACING
--- NOTE | 2019-09-25 15:07 | NUR ---
MS RN NOTES FOLLOW UP WITH DR DAVIDE STALEY REGARDING EFREN REMOVAL ON LEFT AKA, DR STALEY SAID TO FOLLOW UP WITH DAVIDE HANNA IN 2 WEEKS FOR STAPLE REMOVAL, ORDER CLARIFIED AND READ BACK WITH DR STALEY, NOTED AND CARRIED OUT.
[2019-09-25 16:06] VITALS: BP 96/62
--- NOTE | 2019-09-25 18:17 | NUR ---
MS RN NOTES PATIENT SEEN AND EVALUATED BY DR ALVARADO WITH NEW ORDER FOR PICC LINE INSERTION, NUTRITION CLUB AMBASSADOR NATHAN AWARE. DR ALVARADO MADE AWARE THAT PER DAVIDE HANNALES TO BE REMOVE AFTER 2 WEEKS.
--- NOTE | 2019-09-25 19:00 | NUR ---
MS RN NOTES PATIENT IN BED ALERT ORIENTED X 1. NO ACUTE DISTRESS NOTED. BREATHING UNLABORED. NO SOB NOTED. GT PATENT AND INTACT RUNNING ORDERED FEEDING AND SETTING. BLACKWELL CATHETER PATENT AND INTACT DRAINING CLEAR YELLOW URINE. IV ACCESS PATENT AND INTACT, NO REDNESS, NO SWELLING NOTED. NEEDS ATTENDED AND ANTICIPATED. HEAD OF BED ELEVATED. SAFETY MEASURES IN PLACE. CALL LIGHT WITHIN REACH. WILL ENDORSE TO NIGHT NURSE FOR CONTINUITY OF CARE.
[2019-09-25 20:00] VITALS: BP 105/69
--- NOTE | 2019-09-25 20:18 | NUR ---
MS/TELE/RN AT 1930, RECEIVED PATIENT A WAKE, ALERT, COMFORTABLE, NO C/O PAIN, NO DISTRESS NOTED, GT FEEDING INFUSING, HOB ELEVATED, WILL MONITOR.
[2019-09-25] MEDS: CEFTRIAXONE 1 G in IV D5W 50 ML IV SCH (21:07)
[2019-09-26] MEDS: JEVITY 1.2 CAL 1,000 ML BOTTLE GT PRN (01:29)
--- NOTE | 2019-09-26 02:12 | NUR ---
MS/TELE/RN PATIENT IS SLEEPING, APPEAR COMFORTABLE, NO SIGNS OF DISTRESS NOTED, HOB ELEVATED, CALL LIGHT IN REACH. WILL CONTINUE TO MONITOR.
[2019-09-26] MEDS: LINEZOLID RTU BAG 600 MG in PREMIX 1 EA IV SCH ×2 (05:21→16:46)
--- NOTE | 2019-09-26 06:24 | NUR ---
MS/TELE/RN IV WAS LEAKING, REMOVED AND INSERTED NEW IV AT RT. F/A G22.
--- NOTE | 2019-09-26 06:26 | NUR ---
MS/RN/TELE PATIENT IS AWAKE, CONFUSED, COMFORTABLE, NO DISTRESS NOTED, ALL NEEDS ATTENDED AT THIS TIME, WILL CONTINUE TO MONITOR.
--- NOTE | 2019-09-26 07:30 | NUR ---
RN Opening Received patient AO x 1, verbalize but confused. Able to responds all stimuli. Respiratory even and unlabored on room air, no distress observed. Skin is warm to touch, kept clean/dry, intact g-tube site site. keep bed in lock with elevated HOB for ensure airway and aspiration precaution, call light within reach, will continue to monitor.
[2019-09-26 07:38] LABS: BASOPHILS # (AUTO) 0.1 /CMM (0.0-0.2); BASOPHILS % (AUTO) 0.7 % (0.0-2.0); EOSINOPHILS % (AUTO) 1.7 % (0.0-6.0); HEMATOCRIT 31 % (33-45); HEMOGLOBIN 9.9 g/dL (11.5-14.8); LYMPHOCYTES # (AUTO) 1.2 /CMM (0.8-4.8); LYMPHOCYTES % (AUTO) 11.2 % (20.0-44.0); MEAN CORPUSCULAR HGB CONC 32 g/dl (31.0-36.0); MEAN CORPUSCULAR VOLUME 87 fL (82-100); MONOCYTES # (AUTO) 0.9 /CMM (0.1-1.30); MONOCYTES % (AUTO) 8.5 % (2.0-12.0); NEUTROPHILS # (AUTO) 8.3 /CMM (1.8-8.9); NEUTROPHILS % (AUTO) 77.9 % (43.0-81.0); PLATELET COUNT (AUTO) 788 /CMM (150-450); WHITE BLOOD COUNT (AUTO) 10.7 K/uL (4.3-11.0)
[2019-09-26 08:04] LABS: CALCIUM, SERUM 8.2 mg/dL (8.5-10.1); CARBON DIOXIDE 28 mmol/L (21-32); CHLORIDE 100 mmol/L (98-107); CREATININE 0.5 mg/dL (0.6-1.3); GLUCOSE 131 mg/dL (74-106); POTASSIUM 4.1 mmol/L (3.5-5.1); SODIUM SERUM 134 mmol/L (136-145); UREA NITROGEN, BLOOD 16 mg/dL (7-18)
[2019-09-26] MEDS: ASCORBIC ACID 500 MG TABLET GT SCH (09:25)
[2019-09-26] MEDS: FERROUS SULFATE UDC 300 MG/5 ML UDC GT SCH (09:25)
[2019-09-26] MEDS: ZINC SULFATE 220 MG CAPSULE GT SCH (09:25)
[2019-09-26] MEDS: DAKINS QUARTER STRENGTH (0.125%) 480 ML BOTTLE TOP SCH (09:28)
[2019-09-26] MEDS: Z GUARD REMEDY 2 OZ OINT TP SCH (09:28)
[2019-09-26] MEDS: MULTIVITAMINS,THERAGRAN 1 UDTAB TABLET GT SCH (09:28)
[2019-09-26] MEDS: PANTOPRAZOLE 40 MG/PACK PACK GT SCH (09:28)
--- NOTE | 2019-09-26 18:27 | NUR ---
RN note Closing Patient resting in bed, remains AO x 1, confused, does no appears pain or distress. Respiratory even and unlabored on room air. Skin is warm to touch keep clean/dry, changed G tube dressing and sacral dressing. Patient obtained new piccline on left upper arm, and kept intact site. Keep bed in locked with elevated HOB, call light within reach, will endorse police shift commander.
[2019-09-26 20:00] VITALS: BP 102/58
--- NOTE | 2019-09-26 20:40 | NUR ---
MS/TELE/RN ON INITIAL ROUNDING AT 1930, RECEIVED PATIENT SLEEPING, APPEAR COMFORTABLE, BREATHING EVEN AND UNLABORED, G TUBE FEEDING INFUSING, HOB ELEVATED, CALL LIGHT IN REACH. WILL MONITOR.
[2019-09-26] MEDS: CEFTRIAXONE 1 G in IV D5W 50 ML IV SCH (21:23)
[2019-09-27] MEDS: JEVITY 1.2 CAL 1,000 ML BOTTLE GT PRN ×2 (02:12→23:06)
--- NOTE | 2019-09-27 04:49 | NUR ---
MS/TELE/RN MORNING CARE WAS DONE, TOTAL LINEN CARE DONE, WOUND CARE DONE ORDERED, REPOSITIONED TO COMFORT, WILL CONTINUE TO MONITOR.
[2019-09-27] MEDS: LINEZOLID RTU BAG 600 MG in PREMIX 1 EA IV SCH ×2 (05:08→16:28)
--- NOTE | 2019-09-27 06:23 | NUR ---
MS/TELE/RN PATIENT IS SLEEPING, APPEAR COMFORTABLE, NO SIGNS OF DISTRESS NOTED, HOB ELEVATED, ALL NEEDS ATTENDED AT THIS TIME, WILL CONTINUE TO MONITOR.
--- NOTE | 2019-09-27 07:30 | NUR ---
RN Opening Note Received patient in bed, AO x 1 confused, able to responds all stimuli. Pt does no appears pain or any discomfort. Respiratory even and unlabored on room air, skin is warm to touch, keep clean/dry, intact new piccline site with SL. Keep low position of the bed with elevated HOB for ensure airway and bed in locked. Call light within reach, will continue to monitor.
[2019-09-27 08:00] VITALS: BP 108/64
[2019-09-27] MEDS: PANTOPRAZOLE 40 MG/PACK PACK GT SCH (08:46)
[2019-09-27] MEDS: MULTIVITAMINS,THERAGRAN 1 UDTAB TABLET GT SCH (08:46)
[2019-09-27] MEDS: ASCORBIC ACID 500 MG TABLET GT SCH (08:46)
[2019-09-27] MEDS: ZINC SULFATE 220 MG CAPSULE GT SCH (08:46)
[2019-09-27] MEDS: FERROUS SULFATE UDC 300 MG/5 ML UDC GT SCH (08:46)
[2019-09-27] MEDS: DAKINS QUARTER STRENGTH (0.125%) 480 ML BOTTLE TOP SCH (08:47)
[2019-09-27] MEDS: Z GUARD REMEDY 2 OZ OINT TP SCH (08:47)
--- NOTE | 2019-09-27 12:30 | NUR ---
Patient needs Naomi for wound, spoke with pharmacy who will delivery.
--- NOTE | 2019-09-27 18:08 | NUR ---
RN Closing Note Patient in bed, does no appears pain or distress. Respiratory even and unlabored on room air O2sat 96%, no distress observed. Skin is warm to touch, kept clean/dry, intact piccline site with SL, changed dressing on sacral and g tube ostomy, running Jevity at 60ml. Keep bed in locked with HOB for ensure airway and aspiration precaution. Call light within reach, all needs met. Will endorse warehouse supervisor 3rd shift.
--- NOTE | 2019-09-27 19:58 | NUR ---
MS RN OPENING NOTES PATIENT RECEIVED RESTING IN BED A/O X 1. STABLE ON RA WITH BREATHING EVEN AND UNLABORED, NO SOB NOTED. NO SIGNS OF ACUTE DISTRESS. NO COMPLAINTS OF PAIN OR DISCOMFORT- NO FACIAL GRIMACING NOTED. BLACKWELL CATH NOTED AND IN PLACE DRAINING CLEAR YELLOW URINE. GTUBE FEEDING OG JEVITY 60 ML/HR. JUANITA PICC LINE NOTED IN PLACE. SAFETY PRECAUTIONS ON WITH BED IN LOWEST POSITION, CALL LIGHT WITHIN REACH, BREAKS ON, SIDE RAILS UP. WILL CONTINUE TO MONITOR THROUGHOUT THE NIGHT.
[2019-09-27 20:00] VITALS: BP 109/60
[2019-09-27] MEDS: CEFTRIAXONE 1 G in IV D5W 50 ML IV SCH (20:29)
[2019-09-28] MEDS: LINEZOLID RTU BAG 600 MG in PREMIX 1 EA IV SCH ×2 (04:56→17:02)
--- NOTE | 2019-09-28 06:51 | NUR ---
MS RN CLOSING NOTES PATIENT RESTING IN BED A/O X 1. STABLE ON RA WITH BREATHING EVEN AND UNLABORED, NO SOB NOTED. NO SIGNS OF ACUTE DISTRESS. NO COMPLAINTS OF PAIN OR DISCOMFORT- NO FACIAL GRIMACING NOTED. BLACKWELL CATH NOTED AND IN PLACE [id number] CC OF CLEAR YELLOW URINE. GTUBE FEEDING OG JEVITY 60 ML/HR. JUANITA PICC LINE NOTED IN PLACE. SAFETY PRECAUTIONS ON WITH BED IN LOWEST POSITION, CALL LIGHT WITHIN REACH, BREAKS ON, SIDE RAILS UP. ALL NEEDS ATTENDED TO. PATIENT KEPT CLEAN AND DRY THROUGHOUT THE NIGHT. WILL ENDORSE TO ONCOMING SHIFT ABOUT COLIN.
[2019-09-28 07:09] LABS: BASOPHILS # (AUTO) 0.1 /CMM (0.0-0.2); BASOPHILS % (AUTO) 0.9 % (0.0-2.0); EOSINOPHILS % (AUTO) 1.8 % (0.0-6.0); HEMATOCRIT 29 % (33-45); HEMOGLOBIN 9.3 g/dL (11.5-14.8); LYMPHOCYTES # (AUTO) 1.3 /CMM (0.8-4.8); LYMPHOCYTES % (AUTO) 12.3 % (20.0-44.0); MEAN CORPUSCULAR HGB CONC 32 g/dl (31.0-36.0); MEAN CORPUSCULAR VOLUME 85 fL (82-100); MONOCYTES # (AUTO) 0.8 /CMM (0.1-1.30); MONOCYTES % (AUTO) 7.4 % (2.0-12.0); NEUTROPHILS # (AUTO) 8.6 /CMM (1.8-8.9); NEUTROPHILS % (AUTO) 77.6 % (43.0-81.0); PLATELET COUNT (AUTO) 653 /CMM (150-450); RED BLOOD CELL COUNT(AUTO) 3.42 MIL/uL (4.0-5.2)
--- NOTE | 2019-09-28 07:30 | NUR ---
MS/RN OPENING NOTES Received patient resting in bed, A&O x 1, frequently reoriented. No s/s of pain/discomfort at this time. Breathing even and non-labored on RA. No respiratory or cardiac distress noted. PICC line access noted on JUANITA, patent and intact, and flushing well. No s/s of infiltration, infection, or bleeding on site. G-tube in place, patent and intact, no gastric residual noted, Jevity running at 60 mls/hr. Arambula cath in place, draining yellow urine output well. Fall precautions maintained. Will continue to monitor for any changes of condition. Addendum: 09/28/19 at 0851 by TARIQ KRAMER RN Left leg stump noted. Skin clean, dry, and intact.
[2019-09-28 07:54] LABS: BILIRUBIN,TOTAL 0.1 mg/dL (0.2-1.0); CALCIUM, SERUM 8.1 mg/dL (8.5-10.1); CREATININE 0.6 mg/dL (0.6-1.3); POTASSIUM 4.1 mmol/L (3.5-5.1); TOTAL PROTEIN, SERUM 6.5 g/dL (6.4-8.2)
[2019-09-28] MEDS: MULTIVITAMINS,THERAGRAN 1 UDTAB TABLET GT SCH (08:15)
[2019-09-28] MEDS: ZINC SULFATE 220 MG CAPSULE GT SCH (08:15)
[2019-09-28] MEDS: PANTOPRAZOLE 40 MG/PACK PACK GT SCH (08:15)
[2019-09-28] MEDS: FERROUS SULFATE UDC 300 MG/5 ML UDC GT SCH (08:15)
[2019-09-28] MEDS: ASCORBIC ACID 500 MG TABLET GT SCH (08:15)
[2019-09-28 08:49] LABS: ALBUMIN 1.4 g/dL (3.4-5.0)
[2019-09-28] MEDS: DAKINS QUARTER STRENGTH (0.125%) 480 ML BOTTLE TOP SCH (09:03)
[2019-09-28] MEDS: Z GUARD REMEDY 2 OZ OINT TP SCH (09:03)
--- NOTE | 2019-09-28 10:21 | NUR ---
MS/RN NOTES Reported patient's Albumin 1.[address] Holloway, no new orders at this time.
--- NOTE | 2019-09-28 13:47 | NUR ---
MS/RN NOTES Called Dr. Holloway's office to follow up on discharge planning for patient. not in office until 4pm, will follow up.
--- NOTE | 2019-09-28 14:02 | NUR ---
MS/RN NOTES Dr. Holloway at bedside, discharge orders done.
--- NOTE | 2019-09-28 15:10 | NUR ---
MS/RN NOTES Sent covid-test swab to lab.
--- NOTE | 2019-09-28 18:00 | NUR ---
MS/PAYROLL SERVICES ANALYST NOTES Patient picked up by ambulance at 1800. Patient remained A&O x 1, confused, VSS, afebrile, no SOB noted. No s/s of pain/discomfort noted. Breathing even and non-labored on RA. No respiratory or cardiac distress noted. PICC line access left on JUANITA, patent and intact, and flushing well. No s/s of infection, infiltration, or bleeding noted. G-tube in place, no gastric residual noted, patent and intact. Photos of skin placed in chart: Left AKA with radha and sacral stage 4 pressure ulcer. Wound care done before discharge, dressing on sacrum remained clean and intact. Arambula catheter in place, draining yellow urine well, output of 500 mL today. Educated patient on discharge instructions despite altered mental status, also did report to Genet regarding patient's plan of care and discharge instructions from [facility]. Genet verbalized understanding, offered unit number if there are any other questions. Patient left facility safely with hospitalization documents.
== END 2019-09-28 18:00 | DRG 853 ==
LOC: ER 12:23 → MED 16:03
PROVIDERS: ADMIT Internal Medicine; ATTEND Internal Medicine
PROC: 30233N1 Transfusion of Nonautologous Red Blood Cells into Peripheral Vein, Percutaneous Approach (ICD-10-PCS; 2019-09-21)
PROC: 0QB10ZZ Excision of Sacrum, Open Approach (ICD-10-PCS; principal; 2019-09-23)
PROC: 0QB10ZZ Excision of Sacrum, Open Approach (ICD-10-PCS; 2019-09-25)
PROC: 02HV33Z Insertion of Infusion Device into Superior Vena Cava, Percutaneous Approach (ICD-10-PCS; 2019-09-26)
PROC: B548ZZA Ultrasonography of Superior Vena Cava, Guidance (ICD-10-PCS; 2019-09-26)
DX: A41.9 Sepsis, unspecified organism (principal); L89.154 Pressure ulcer of sacral region, stage 4; E43 Unspecified severe protein-calorie malnutrition; J15.9 Unspecified bacterial pneumonia; N39.0 Urinary tract infection, site not specified; M46.28 Osteomyelitis of vertebra, sacral and sacrococcygeal region; Z16.21 Resistance to vancomycin; E78.5 Hyperlipidemia, unspecified; G30.9 Alzheimer's disease, unspecified; F02.80 Dementia in other diseases classified elsewhere, unspecified severity, without behavioral disturbance, psychotic disturbance, mood disturbance, and anxiety; I25.10 Atherosclerotic heart disease of native coronary artery without angina pectoris; Z66 Do not resuscitate; Z93.1 Gastrostomy status; Z87.440 Personal history of urinary (tract) infections; Z86.14 Personal history of Methicillin resistant Staphylococcus aureus infection; I73.9 Peripheral vascular disease, unspecified; L89.150 Pressure ulcer of sacral region, unstageable; I10 Essential (primary) hypertension; E86.0 Dehydration; F41.9 Anxiety disorder, unspecified; I25.2 Old myocardial infarction; R13.10 Dysphagia, unspecified; Z79.899 Other long term (current) drug therapy; Z79.01 Long term (current) use of anticoagulants; Z79.82 Long term (current) use of aspirin; F32.9 Major depressive disorder, single episode, unspecified; D63.8 Anemia in other chronic diseases classified elsewhere; Z89.612 Acquired absence of left leg above knee; Z96.649 Presence of unspecified artificial hip joint; Z88.0 Allergy status to penicillin; B96.20 Unspecified Escherichia coli [E. coli] as the cause of diseases classified elsewhere; D50.9 Iron deficiency anemia, unspecified; B95.2 Enterococcus as the cause of diseases classified elsewhere; K76.0 Fatty (change of) liver, not elsewhere classified; Z74.01 Bed confinement status; Z86.19 Personal history of other infectious and parasitic diseases
CPT/HCPCS: 36415; 71045-TC; 76705-TC; 80048-TC; 80053-TC; 80076-TC; 80202-TC; 81000-TC; 82962-TC; 83540-TC; 85025-TC; 85045-TC; 85652-TC; 85730-TC; 86140-TC; 86850-TC; 86921-TC; 87040-TC; 87070-TC; 87081-TC; 87086-TC; 87186-TC; A4216; A6253; A6403; C1751; G0378; J0692; J0696; J1650; J2020; J2270; J2543; J3370; J3490; J7040; J7050; J7060; P9016-BL